=== PATIENT | female | born 1965 | race Hispanic/Latino ===

== ENCOUNTER 2020-06-06 11:43 | Inpatient (IN) | payer OTHER ==
[~2020-06-06 11:43] MED LIST: Iopamidol-370 76% 500 ML 1 ML ONE
[2020-06-06 12:33] LABS: Hemoglobin 13.2 g/dL (12.0-16.0); Mean Corpuscular Volume 94.2 fL (78.0-98.0); Mean Platelet Volume 7.4 fL (7.4-10.4); Platelet Count 333 thou/uL (130-400); RBC Distribution Width 11.2 % (11.5-14.5); Red Blood Cell (RBC) Count 4.11 mill/uL (4.20-5.40); White Blood Cell (WBC) Count 12.4 thou/uL (4.8-10.8)
[2020-06-06 12:51] LABS: ALT (SGPT) 14 U/L (8-55); AST (SGOT) 10 U/L (5-34); Albumin 3.7 g/dL (3.5-5.0); Alkaline Phosphatase 77 U/L (40-110); Anion Gap 15 mmol/L (10-20); BUN (Urea Nitrogen) 10 mg/dL (9.8-20.1); Band 11 % (5-11); Bilirubin, Total 0.5 mg/dL (0.2-1.2); Calc. Creatinine Clearance 0 mL/min (70-130); Calcium 9.5 mg/dL (7.8-10.44); Carbon Dioxide 30 mmol/L (22-29); Chloride 99 mmol/L (98-107); Eosinophils 1 % (0-10); Glucose 116 mg/dL (70-105); Lymphocytes 5 % (21-51); MDiff Complete? YES; Monocytes 3 % (0-10); Neutrophil 77 % (42-75); Potassium 3.3 mmol/L (3.5-5.1); Protein, Total 7.7 g/dL (6.0-8.3); RBC Morphology Normal; Reactive Lymphocytes 3 % (0-10); Sodium 141 mmol/L (136-145)
[2020-06-06] MEDS ORDERED: Morphine 4 MG/ML VIAL ONE (15:09)
[2020-06-06] MEDS ORDERED: Ondansetron PF 4 MG/2 ML Vial ONE (15:10)
--- NOTE | 2020-06-06 15:29 | CT ---
CT ABDOMEN AND PELVIS WITH IV CONTRAST 06/06/2020 CLINICAL INFORMATION: Diffuse abdominal pain. History of Crohn's disease. COMPARISON: 06/02/2020 Technique: Multiple contiguous axial CT images are obtained through the abdomen and pelvis with IV contrast. Cor onal reformatted images are provided. FINDINGS: Lower Chest: Lung bases are clear. Vessels: Abdominal aorta is normal in caliber without evidence of an aortic dissection. Incidental no te is made of a circumaortic left renal vein. Abdomen: Portal vein:Patent Gallbladder: Within normal limits for CT imaging. Liver: within normal limits. Spleen: within normal limits. Pancreas: within normal limits. Adrenals: within normal limits. Kidneys: within normal limits. Bowel: There is bowel wall thickening involving the sigmoid colon which extends to the rectosigmoid j unction. Degree of bowel wall thickening has increased compared to the prior exam. Adjacent pericolonic inflammatory changes are seen most compatible with colitis. There are several tiny puncta te foci of gas present suggesting microperforation. There is now a curvilinear air fluid collection in the right hemipelvis compatible with contained perforation or abscess collection which grossly angelique sures 5.7 cm craniocaudal x7.4 cm AP x4.6 cm transverse. Appendix: The appendix is mildly prominent measuring 9 mm in diameter within the level of the mid jasmyn endix. The appendix previously measured approximately 8 mm in diameter on prior exam. There is adjacent inflammatory stranding present, but the inflammatory stranding is likely attributable to col itis. Findings are not thought to be secondary to appendicitis. Peritoneum: No inflammatory stranding in the lower pelvis as described above. Mesentery and Retroperitoneum: No enlarged mesenteric or retroperitoneal lymph nodes. Abdominal Wall: within normal limits. Pelvis: Reproductive Organs: Evidence of hysterectomy. Bladder: within normal limits. Bones: No suspicious lytic or sclerotic osseous lesions. IMPRESSION: 1. Findings most compatible with progression in degree of colitis involving the sigmoid colon now wit h evidence of perforation with foci of free intraperitoneal gas and large fluid and air collection adjacent to the sigmoid colon which may represent either a contained perforation or abscess collectio n. 2. Above findings discussed with Jes Narayan, nurse practitioner in the emergency department on at 1524 hours.
[2020-06-06 15:59] LABS: Bilirubin Negative (Negative); Blood, Urine Negative (Negative); Clarity Clear (Clear); Glucose, Urine (Dipstick) Normal (Negative); Ketone, Urine Negative (Negative); Leukocyte Negative Leu/uL (Negative); Nitrite Negative (Negative); Protein, Urine (Dipstick) Negative (Neg-Trace); Specific Gravity, Urine 1.038 (1.002-1.036); Urobilinogen Normal mg/dL (Less than 2)
[2020-06-06] MEDS ORDERED: Piperacillin/Tazobactam 4.5 GM VIAL ONE (16:20)
[2020-06-06] MEDS ORDERED: Morphine 4 MG/ML VIAL SLOW IVP PRN (17:28)
[2020-06-06] MEDS ORDERED: hydrALAZINE 20 MG/ML VIAL SLOW IVP PRN (17:28)
[2020-06-06] MEDS ORDERED: Ondansetron PF 4 MG/2 ML Vial IVP PRN ×2 (17:28→18:49)
[2020-06-06] MEDS ORDERED: Promethazine HCl 25 MG/ML VIAL IM PRN ×2 (17:28→18:49)
[2020-06-06] MEDS ORDERED: Fentanyl 100 MCG/2 ML VIAL ONE ×2 (17:30→22:01)
[2020-06-06] MEDS ORDERED: Ketorolac Tromethamine 30 MG/ML VIAL ONE (17:30)
[2020-06-06] MEDS ORDERED: Ondansetron ODT 8 MG TAB SL PRN (17:32)
[2020-06-06] MEDS ORDERED: Sodium Chloride 0.9% 1,000 ML IV SCH (17:45)
[2020-06-06] MEDS ORDERED: Ketorolac Tromethamine 30 MG/ML VIAL IVP SCH (17:45)
--- NOTE | 2020-06-06 17:59 | HP ---
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 She is . She has two children. She states that she has been known to have Crohn disease quiescent for the last 10 years, has not had a colonoscopy more than 10 years. She is also noted to have a past history of lupus, also quiescent for the last 10 years, not on any treatment. 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 She began having mucousy stools, small in caliber, and lower abdominal pain. She began treatment with Vancocin orally until C difficile studies were negative. Her pain worsened and she presented to the [facility] last week and was evaluated, had a CAT scan and was diagnosed with colitis. She was started on Flagyl. No other treatment. Diet was not altered, although she was not hungry and did not eat much. The pain became unbearable for the last four days and she presented to this facility where she is evaluated. She is evaluated with a CAT scan of the abdomen and pelvis revealing sigmoid colitis, adjacent contained free air and a pelvic abscess 5 x 7 cm. I have discussed with Nikolay Dan, and he agrees this is amenable to drainage. The patient is having quite a bit of pain, mostly pelvis and radiation to her rectum. Her white count is 12, hemoglobin 13, sodium 141, potassium 3.3, glucose 116. Her vital signs have remained stable. ALLERGIES: NONE. TOBACCO: None. ALCOHOL: Rarely. MEDICATIONS: None routinely. PAST SURGICAL HISTORY: Laparoscopic hysterectomy without oophorectomy, C-sections, hemorrhoidectomy. She had a colonoscopy, last she estimated was at 44 years of age. At 39 years of age, she was diagnosed with Crohn's. She consider herself allergic to wheat, and since avoiding wheat, she has not had any GI problems. The patient has the past history of Crohn's, lupus, and Raynaud as noted above. REVIEW OF SYSTEMS: Ten-point noncontributory. FAMILY HISTORY: Noncontributory. PHYSICAL EXAMINATION: VITAL SIGNS: 128/74, respiratory rate 18, heart rate 78. HEAD, EARS, EYES, NOSE, AND THROAT: Unremarkable. LUNGS: Clear to auscultation. CARDIAC: Regular rate and rhythm without murmur or gallop. ABDOMEN: Soft, slightly obese, protuberant. She has bowel sounds present. She has voluntary guarding in her upper abdomen. She has severe tenderness, peritoneal signs in the left lower quadrant suprapubic area. EXTREMITIES: Unremarkable. She has an IV left antecubital that is tenuous. Lab is trying to draw blood and cannot. ASSESSMENT/PLAN: 1. Severe colitis with contained perforation and pelvic abscess. I have talked to the patient about my concern regarding her abdominal pain. We will plan admission to the hospital, placement of central line, aggressive hydration as she is dehydrated, and treat her hypokalemia. I talked to Dr. Nikolay Dan and we will plan a CT-guided drainage of her pelvic abscess. We will consult GI to follow her along with me in reference to her Crohn disease and problems. Hopefully, we can avoid an operation which if necessary would consist of colectomy and colostomy, probably temporary. She understands these issues and consents to treatment nonsurgically at this point with CT-guided drainage. 2. Crohn disease. 3. Lupus. 4. Dehydration. 5. Hypokalemia. 6. Poor IV access, plan central line. Job ID: [id number]
--- NOTE | 2020-06-06 18:06 | RAD ---
Exam: Chest one view HISTORY:Preoperative exam. Left lower quadrant abdominal pain. Comparison: None FINDINGS: Cardiac silhouette:No cardiac silhouette Left-sided subclavian vascular catheter terminates over the right atrium. Aorta: Unremarkable Pulmonary vessels: Normal Costophrenic angles: Clear LUNGS: No masses or consolidation. Pneumothorax: None Osseous abnormalities: None IMPRESSION: No acute cardiopulmonary process.
[2020-06-06] MEDS ORDERED: Zolpidem Tartrate 5 MG TAB PO PRN (18:49)
[2020-06-06] MEDS ORDERED: Naloxone HCl 0.4 mg/ml Vial IV PRN (18:49)
[2020-06-06] MEDS ORDERED: diphenhydrAMINE 50 MG/ML VIAL IVP PRN (18:49)
[2020-06-06] MEDS ORDERED: diphenhydrAMINE 25 MG CAP PO PRN (18:49)
[2020-06-06] MEDS ORDERED: diphenhydrAMINE 50 MG/ML VIAL IM PRN (18:49)
[2020-06-06] MEDS ORDERED: Communication Order-Pharmacy FS SCH (19:00)
[2020-06-06] MEDS: Potassium Chloride 20 MEQ in Lactated Ringer's 1,000 ML IV SCH (19:03)
[2020-06-06] MEDS: HYDROmorphone 10 mg/100 ml CADD IVPB PRN (22:55)
[2020-06-06] MEDS ORDERED: Ondansetron ODT 4 MG TAB ONE (23:55)
[2020-06-07] MEDS ORDERED: Piperacillin/Tazobactam 4.5 GM VIAL ONE (00:50)
[2020-06-07] MEDS ORDERED: Enoxaparin Sodium 40 MG/0.4 ML SYRINGE ONE (00:50)
[2020-06-07] MEDS ORDERED: Famotidine/PF 20 mg/2ml Vial ONE (00:50)
[2020-06-07] MEDS: Famotidine/PF 20 mg/2ml Vial SLOW IVP SCH ×3 (00:57→21:33)
[2020-06-07] MEDS: Enoxaparin Sodium 40 MG/0.4 ML SYRINGE SC SCH ×2 (00:58→21:34)
[2020-06-07] MEDS: Piperacillin/Tazobactam 4.5 GM in Sodium Chloride 0.9% 100 ML IVPB SCH ×3 (01:00→16:16)
[2020-06-07 06:55] LABS: Hemoglobin 13.4 g/dL (12.0-16.0); Mean Corpuscular HGB CONC 33.6 g/dL (32.0-36.0); Mean Corpuscular Hemoglobin 32.1 pg (27.0-31.0); Mean Corpuscular Volume 95.5 fL (78.0-98.0); Mean Platelet Volume 7.5 fL (7.4-10.4); Platelet Count 307 thou/uL (130-400); RBC Distribution Width 11.3 % (11.5-14.5); Red Blood Cell (RBC) Count 4.17 mill/uL (4.20-5.40); White Blood Cell (WBC) Count 2.7 thou/uL (4.8-10.8)
[2020-06-07 07:03] LABS: INR-International Normal Ratio 1.2; PTT 30.5 sec (22.9-36.1); Prothrombin Time 15.4 sec (12.0-14.7)
[2020-06-07 07:21] LABS: ALT (SGPT) 8 U/L (8-55); AST (SGOT) 8 U/L (5-34); Albumin 3.2 g/dL (3.5-5.0); Alkaline Phosphatase 55 U/L (40-110); Anion Gap 17 mmol/L (10-20); BUN (Urea Nitrogen) 12 mg/dL (9.8-20.1); Bilirubin, Total 0.7 mg/dL (0.2-1.2); Calc. Creatinine Clearance 0 mL/min (70-130); Calcium 8.5 mg/dL (7.8-10.44); Carbon Dioxide 24 mmol/L (22-29); Chloride 108 mmol/L (98-107); Globulin 3.1 g/dL (2.4-3.5); Glucose 116 mg/dL (70-105); Magnesium 1.8 mg/dL (1.6-2.6); Phosphorus 4.3 mg/dL (2.3-4.7); Potassium 3.6 mmol/L (3.5-5.1); Protein, Total 6.3 g/dL (6.0-8.3); Sodium 145 mmol/L (136-145)
[2020-06-07] MEDS: Potassium Chloride 20 MEQ in Lactated Ringer's 1,000 ML IV SCH ×4 (07:24→18:15)
[2020-06-07 07:53] LABS: Band 44 % (5-11); Lymphocytes 20 % (21-51); MDiff Complete? YES; Metamyelocyte 2 % (0-0); Monocytes 5 % (0-10); Myelocyte 1 % (0-0); Neutrophil 18 % (42-75); Platelet Morphology Comment Appears Adequate; Polychromasia SLIGHT = 2-3 cells (100X) (0-2/hpf); RBC Morphology Normal; Reactive Lymphocytes 10 % (0-10); Reflex for Review?? YES; Vacuoles MARKED
[2020-06-07] MEDS ORDERED: Sodium Bicarbonate 2.5 MEQ/5 ML VIAL ONE (07:58)
[2020-06-07] MEDS ORDERED: Midazolam HCl 2 mg/2 ml Vial ONE (07:59)
[2020-06-07] MEDS ORDERED: Fentanyl 100 MCG/2 ML VIAL ONE ×2 (07:59→12:49)
--- NOTE | 2020-06-07 08:54 | CT ---
CT Abdomen Pelvis WO Con 06/07/2020 12:00 AM HISTORY: Patient scheduled for fluid and air collection drainage. However initial kitchenwhere maker imaging prior to drain age demonstrates decompression of the collection with increase in free fluid in the abdomen. As a result, CT abdomen and pelvis without was performed COMPARISON: 06/06/2020 Technique: Multiple contiguous axial CT images are obtained through the abdomen and pelvis without IV contrast. Coronal reformats are provided. FINDINGS: This examination is limited for the evaluation of solid organs and vascular structures due to the lac k of intravenous contrast. Lower Chest: Patchy parenchymal density seen at the right lung base and to lesser extent left lung ba se likely related to bibasilar atelectasis. Partial visualization of a central venous catheter with tip near the right atrium. Liver: Grossly normal non-enhanced CT appearance. Gallbladder: Mildly distended with increased density seen in the gallbladder related to vicarious exc retion of contrast into the gallbladder. Pancreas: Grossly normal nonenhanced CT appearance. Spleen: Grossly normal nonenhanced CT appearance. Adrenals: Grossly normal nonenhanced CT appearance. Kidneys and ureters: No renal or ureteral calculi are seen bilaterally. Urinary bladder: Distended with contrast and has a normal CT appearance. Reproductive Organs: Evidence of hysterectomy. Lymph Nodes: No enlarged lymph nodes. Bowel: Persistent bowel wall thickening involving the sigmoid colon related to colitis is again prese nt. Contrast is present within the descending and sigmoid colon extending to the rectum. Loops of small bowel are normal in caliber. Appendix: Not well assessed due to free fluid in the abdomen. There is gas seen in the expected locat ion of the appendix. Peritoneum: Previously seen fluid and gas collection in the right hemipelvis has significantly decrea sed in size with hyperdense material present within the region of the previously seen collection. There is now large amount of free intraperitoneal gas and increase in fluid throughout the abdomen an d pelvis with greatest adjacent to the anterior margin of the liver. Findings are compatible with perforation of a viscus again likely arising from sigmoid colon and in the region of the presumed con tained perforation right hemipelvis. Vessels: Abdominal aorta is normal in caliber.. Abdominal Wall: within normal limits. Bones: No lytic or sclerotic osseous lesions. IMPRESSION: 1. Increase in free intraperitoneal gas and free fluid compatible with perforation of a viscus which again likely arises from the plate sigmoid colon and in the region of presumed previously noted contained perforation right hemipelvis. The fluid and gas collection in the right hemipelvis has sign ificantly decreased in size with small amount of increased density material now present within this collection. 2. Thickening involving the sigmoid colon compatible with colitis. 3. Bibasilar atelectasis with trace pericardial effusion. 4. Above findings were discussed with Dr. Garcia on 06/07/2020 at 0832 hours.
[2020-06-07 09:02] LABS: SARS-CoV-2 NAA Rapid Test Not Detected (NotDetected)
--- NOTE | 2020-06-07 09:14 | PRG ---
DATE OF SERVICE: 06/07/2020 SUBJECTIVE: Ms. Paiz this morning is feeling worse. Her white count has dropped to 2.7. She has 44% bands. Hemoglobin is 13.4. Rapid COVID screen is pending. 145, 3.6, 108, sodium, potassium, chloride, BUN 12, creatinine 1.04. The patient feels worse. OBJECTIVE: LUNGS: Clear to auscultation. CARDIAC: Regular rate and rhythm without murmur or gallop. ABDOMEN: Diffusely tender. Peritoneal signs. No bowel sounds. EXTREMITIES: Unremarkable. IMAGING STUDIES: Repeat CAT scan attempted CT-guided drainage of fluid collection revealed the fluid collection is no longer present and more dispersed in the abdominal cavity. There was free air more abundant throughout the abdominal cavity. ASSESSMENT/PLAN: Peritonitis, perforated colon. PLAN: Exploratory laparotomy, colon resection, colostomy indicated. She understands risks and benefits, consents. Job ID: [id number]
[2020-06-07] MEDS ORDERED: Fentanyl 250 MCG/5 ML VIAL ONE (09:24)
[2020-06-07] MEDS ORDERED: Lidocaine 1% w/Epinephrine 1:100K 20 ML VIAL ONE (10:00)
[2020-06-07] MEDS ORDERED: Bupivacaine PF 0.5% 30 ML VIAL ONE (10:00)
[2020-06-07] MEDS ORDERED: Lidocaine 1% PF 5 ML VIAL ONE (10:17)
[2020-06-07] MEDS ORDERED: Succinylcholine 200 MG/10 ml SYRINGE FS ONE (10:17)
[2020-06-07] MEDS ORDERED: Ondansetron PF 4 MG/2 ML Vial ONE (10:17)
[2020-06-07] MEDS ORDERED: Glycopyrrolate 0.2 MG/ML 5 ML SYRINGE ONE (10:17)
[2020-06-07] MEDS ORDERED: Vecuronium 10 MG VIAL ONE (10:17)
[2020-06-07] MEDS ORDERED: Phenylephrine 40 MG in Sodium Chloride 0.9% 250 ML 250 ML IVPB SCH (10:30)
[2020-06-07] MEDS ORDERED: Albumin 5% 500 ML ONE (10:52)
[2020-06-07] MEDS ORDERED: Promethazine HCl 25 MG/ML VIAL ONE (13:21)
--- NOTE | 2020-06-07 13:49 | OP ---
DATE OF PROCEDURE: 06/07/2020 PREOPERATIVE DIAGNOSES: 1. Sigmoid diverticulitis. 2. Feculent peritonitis. 3. Acute abdomen. POSTOPERATIVE DIAGNOSES: 1. Sigmoid diverticulitis. 2. Feculent peritonitis. 3. Acute abdomen. PROCEDURES PERFORMED: 1. Exploratory laparotomy. 2. Left colon and splenic flexure mobilization. 3. Left colon resection. 4. Colostomy. 5. Lenka's pouch, roland with a 2-0 Prolene, 3 Seprafilm placed between the omentum and the abdominal wall wound, partially closed with a wound VAC applied. ANESTHESIA: General. DESCRIPTION OF PROCEDURE: The patient was taken to the operating room where under general anesthesia, Montenegro catheter placed. Abdomen prepared with ChloraPrep and draped in routine fashion. Incision made from the lower abdomen to above the umbilicus, carried down to skin, subcutaneous tissue, midline fascia, and abdominal cavity sharply. There was feculent material fluid in the abdominal cavity, evacuated with suction. The abdominal wall was fat. She is obese. Abdominal cavity irrigated. Sigmoid colon mobilized. Left colon mobilized. Splenic flexure mobilized, taking down the gastrocolic ligament adjacent to the transverse colon and splenic flexure mobilized. This was difficult as the splenic flexure was very high. Attention was then turned to the pelvis where the left ureter was identified, kept free of harm. The left tube and ovary were adherent to the process and excised using the LigaSure, submitted with the specimen. The mesentery divided between clamps and divided the CINDY, keeping the left ureter free of harm. 2-0 silk ties were used. LigaSure used and the mesentery divided down into the sacral hollow. The presacral spots dissected free. The sigmoid colon was perforated with severe inflammatory reaction in the junction of the distal 3rd and mid 3rd colon. Just above the peritoneal reflection, colon divided with a Contour stapler. Stump marked with a 2-0 Prolene suture. Mesentery divided with LigaSure between clamps and 2-0 silk ties. Good hemostasis noted. Colon mobilized proximally well above the perforated area, enough colon mobilized to accommodate colostomy reversal in the future. Colon proximally divided with ANDREW 75 stapler. Specimen submitted to Pathology. Left tube and ovary adherent to the process divided, excised using the LigaSure. At this point, the abdominal cavity thoroughly irrigated with saline solution, irrigant evacuated. All quadrants and subhepatic spaces and pelvis interloops were aggressively irrigated, agitated, and washed using more than 6 L of saline. A circular defect of skin was created in the left lower quadrant and a cruciate incision made in the anterior rectus fascia. Rectus muscle split mediolaterally. Posterior fascia and peritoneum opened, dilated more than two fingerbreadths due to her obese status. Colon brought through this defect and then wound irrigated, irrigant evacuated. Good hemostasis noted. Sponge and needle counts were correct. Seprafilm x3 placed between the omentum and the viscera and around the colostomy site. The midline fascia closed with continuous suture of #1 PDS. Skin and subcutaneous tissues irrigated. Skin loosely approximated with justice about the umbilicus corners and Wound Care Team placed a wound VAC after colostomy was matured with 4-quadrant sutures of 3-0 Vicryl Matheus sutures after dividing the colon and simple sutures 3-0 Vicryl. Colostomy appliance secured. The patient tolerated the procedure well and transferred ICU, hopefully extubated. Job ID: [id number]
[2020-06-07] MEDS: Ketorolac Tromethamine 30 MG/ML VIAL IVP PRN ×2 (14:58→21:36)
[2020-06-07 15:08] VITALS: BMI 29.9
[2020-06-07 15:36] LABS: Hemoglobin 12.3 g/dL (12.0-16.0); Mean Corpuscular HGB CONC 32.9 g/dL (32.0-36.0); Mean Corpuscular Hemoglobin 32.3 pg (27.0-31.0); Mean Corpuscular Volume 98.3 fL (78.0-98.0); Mean Platelet Volume 7.5 fL (7.4-10.4); Platelet Count 314 thou/uL (130-400); RBC Distribution Width 11.5 % (11.5-14.5); White Blood Cell (WBC) Count 6.1 thou/uL (4.8-10.8)
[2020-06-07 16:05] LABS: Band 42 % (5-11); Lymphocytes 22 % (21-51); MDiff Complete? YES; Metamyelocyte 12 % (0-0); Monocytes 1 % (0-10); Myelocyte 2 % (0-0); Neutrophil 21 % (42-75); Platelet Morphology Comment Appears Adequate; RBC Morphology Normal; Vacuoles SLIGHT
--- NOTE | 2020-06-07 16:06 | CON ---
DATE OF CONSULTATION: HISTORY OF PRESENT ILLNESS: Nieves Paiz is a 54-year-old female from [place], who was seen by Dr. Garcia, general surgeon, for acute abdomen. She is status post lap with a colostomy in place. History is well outlined in the chart. She is somewhat lethargic, but says except for abdominal pain, she is having no difficulty breathing. She is a nonsmoker and nondrinker. No prior history of pneumonia, TB, or asthma. PAST MEDICAL HISTORY: Pertinent for Crohn disease, which she has had for a long duration, at least 10 years. She started having some GI problems, felt to be colitis. CT done. She received a course of Flagyl and apparently p.o. vancomycin when pain became worse. She was found to have a perforated viscus. She is now status post surgery. No diabetes or hypertension. History of apparently lupus, though I do not see any medicine she is taking. PAST SURGICAL HISTORY: Hysterectomy, oophorectomy, hemorrhoids, colonoscopy. PHYSICAL EXAMINATION: GENERAL: In the ICU, extubated. VITAL SIGNS: Temperature 97, pulse 90, blood pressure 88/60, respirations 18, saturations 98% on room air. CHEST: No wheezing. No crackles. CARDIAC: Normal S1 and S2. No gallops. ABDOMEN: No masses. LABORATORY DATA: White count 2000, H and H of 13 and 39, platelet count is normal. She has left shift, 44 segs, and 18 bands. Liver function normal and lytes normal. Renal function normal. IMPRESSION: 1. Peritonitis status with perforated colon, status post exploratory laparotomy, colon resection, colostomy. 2. History of lupus. 3. History of Crohn disease. PLAN: Pulmonary sprague, she appears to be stable in the ICU. We will continue to watch her while in the ICU. This is a 70-minute consultation note, 50% direct patient care. Job ID: [id number]
[2020-06-07 16:09] LABS: Anion Gap 15 mmol/L (10-20); BUN (Urea Nitrogen) 11 mg/dL (9.8-20.1); Calc. Creatinine Clearance 111 mL/min (70-130); Calcium 7.2 mg/dL (7.8-10.44); Carbon Dioxide 23 mmol/L (22-29); Chloride 111 mmol/L (98-107); Glucose 126 mg/dL (70-105); Potassium 3.6 mmol/L (3.5-5.1); Sodium 145 mmol/L (136-145)
[2020-06-07] MEDS ORDERED: Potassium Chloride 20 MEQ in Lactated Ringer's 1,000 ML IV SCH (17:26)
[2020-06-07] MEDS ORDERED: Sodium Chloride 0.9% 1,000 ML IV SCH (17:30)
[2020-06-07] MEDS: Albumin 25% 25 GM/100 ML BOT IVPB SCH (18:18)
--- NOTE | 2020-06-08 00:02 | CON ---
DATE OF CONSULTATION: 06/07/2020 REASON FOR CONSULT: Possible Crohn's disease. HISTORY OF PRESENT ILLNESS: Ms. Paiz is a pleasant 54-year-old female, who reports Crohn's diagnosis going back about 20 years. She states it was initially diagnosed at a walk-in medical center with inflammation in her lower colon. She has never been on any therapy. Her last colonoscopy was about 5 years ago at [facility]. She stated there, she had chronic inflammation in the lower colon. Managed basically by staying away from fiber products. She also reports a history of lupus, which has been quiescent for about 10 years. More recently, she has been working at [employer], she states since about 2010 and within the past couple weeks, she began to have mucousy stools, small caliber, lower abdominal pain and she attributed to C. difficile, so she started vancomycin orally, but had C. difficile that was negative, so she stopped that. With worsening pain, she went to [facility] last week and had a CAT scan that showed "colitis." She was placed on Flagyl. She has some loss of appetite, but in the past 4 days had unbearable pain and presented to this facility with a CAT scan last night that showed sigmoid colitis and free pelvic abscess 5.7 cm in diameter. Today, she was going to have percutaneous drainage, but there appeared to be diffuse fluid in the abdomen at that time, there was seen to be gross perforation. [facility] per[facility]. She has had a washout and a colostomy. Presently, she is recovering in the ICU. She states her abdomen is thaw shed heater tender. She denies any recent weight loss. She denies any other small bowel involvement or Crohn's as far she knows. She denies any therapy in the past. ALLERGIES: NONE. SOCIAL HISTORY: Tobacco none. Alcohol none. MEDICATIONS: None on a regular basis. PAST SURGICAL HISTORY: Laparoscopic cholecystectomy, hysterectomy with oophorectomy and C-sections, previous hemorrhoidectomy, last colonoscopy probably at age 44. She was diagnosed with Crohn's at age 39. With avoiding wheat, has had no real problems. She has a prior history of lupus, which has been quiescent and history of Raynaud's. REVIEW OF SYSTEMS: She denies any eye manifestations, skin manifestations, inflammatory bowel disease, or any liver problems in the past. She denies any dysphagia, odynophagia, melena. She had some blood-tinged stool recently. FAMILY HISTORY: She denies history of colorectal cancer or Crohn's, but she states her family does not talk about medical issues. PRESENT MEDICATIONS: Here, albumin 25 g IV q.6, Benadryl p.r.n., Lovenox subcu, Pepcid, hydralazine p.r.n., Dilaudid p.r.n., Toradol p.r.n., Zofran p.r.n., Zosyn 4.5 g q.6, potassium replacement, normal saline. She received a bolus and LR at 200. PHYSICAL EXAMINATION: GENERAL: She is resting in the ICU. VITAL SIGNS: Pulse 102, blood pressure 92/63, respirations 12, sat 95%. LUNGS: Clear. HEART: Regular without clicks or murmurs. ABDOMEN: Slightly protuberant. She has ostomy in left lower quadrant. She is tender diffusely. Bowel sounds are quiescent. NEUROLOGIC: She is alert and oriented to person, place, and time. SKIN: No rash or lesions. LABORATORY DATA: White count was 12.4 yesterday, 2.7 today, 6.1 at 1500; hemoglobin 13.2, now 12 at 1500; platelet count 314; 42% bands, 11% yesterday. INR 1.2. Sodium 145, potassium 3.6, BUN and creatinine are 11 and 0.7, glucose 126, calcium 7.2. Liver function tests were normal on admission. Albumin 3.7, protein 7.7, globulin is 4. Lipase was 7. Urine on admission was clear. COVID was negative. CT scans reviewed. Initial CAT scan showed sigmoid thickening from the sigmoid colon to the rectosigmoid junction. There were signs of microperforation at that time and some free fluid in the pelvis, this is on the 14th, 5.7 x 7.4 cm. Appendix was normal. No lymph nodes were noted. CT from 06/02 was reviewed, sigmoid colitis, mild hydroureter on the left. Blood cultures pending. ASSESSMENT: This is a lady with remote history of Crohn's, no therapy ever, who presented now with an abscess and perforation of sigmoid colon. Differential diagnosis includes diverticular abscess perforation, Crohn's disease perforation. She has been managed operatively. She is on broad-spectrum antibiotics. RECOMMENDATIONS: At this point in time, we are going to get a QuantiFERON and hepatitis B markers. If this is Crohn's, she is going to need biologic therapy at a later date once she recovers from surgery. She will need a colonoscopy when she recovers from surgery. At this time, we will follow with you. Job ID: [id number]
[2020-06-08] MEDS: Albumin 25% 25 GM/100 ML BOT IVPB SCH ×4 (00:07→18:30)
[2020-06-08] MEDS: Piperacillin/Tazobactam 4.5 GM in Sodium Chloride 0.9% 100 ML IVPB SCH ×3 (00:08→16:25)
[2020-06-08] MEDS: Potassium Chloride 20 MEQ in Lactated Ringer's 1,000 ML IV SCH ×4 (00:12→18:31)
[2020-06-08] MEDS: HYDROmorphone 10 mg/100 ml CADD IVPB PRN (05:56)
[2020-06-08 06:00] LABS: Anion Gap 13 mmol/L (10-20); BUN (Urea Nitrogen) 10 mg/dL (9.8-20.1); Calc. Creatinine Clearance 102 mL/min (70-130); Calcium 7.4 mg/dL (7.8-10.44); Carbon Dioxide 24 mmol/L (22-29); Chloride 114 mmol/L (98-107); Glucose 88 mg/dL (70-105); Potassium 4.3 mmol/L (3.5-5.1); Sodium 147 mmol/L (136-145)
[2020-06-08 06:06] LABS: Band 40 % (5-11); Eosinophils 2 % (0-10); Hemoglobin 10.5 g/dL (12.0-16.0); Hypochromia SLIGHT = 6-15 cells (100X) (0-5/hpf); Lymphocytes 28 % (21-51); MDiff Complete? YES; Metamyelocyte 20 % (0-0); Monocytes 6 % (0-10); Neutrophil 3 % (42-75); Platelet Count 254 thou/uL (130-400); Platelet Morphology Comment Appears Adequate; RBC Distribution Width 11.6 % (11.5-14.5); Reactive Lymphocytes 1 % (0-10); Red Blood Cell (RBC) Count 3.28 mill/uL (4.20-5.40); White Blood Cell (WBC) Count 12.9 thou/uL (4.8-10.8)
[2020-06-08 06:15] LABS: HBCM Index 0.07 S/CO (0-0.79); HBSAB Concentration Less than 8.00 mIU/mL; HBSAg Index 0.18 S/CO (0-0.99); Hep B Core Total Ab Non-Reactive (NonReactive); Hep B Core Total Index 0.11 S/CO (0-0.79); Hep B Surf AB Non-Reactive (NonReactive); Hep B Surf Ag Non-Reactive S/CO (NonReactive); Hepatitis B Core IgM Abs Non-Reactive (NonReactive)
--- NOTE | 2020-06-08 09:15 | PRG ---
DATE OF SERVICE: 06/08/2020 SUBJECTIVE: Nieves Paiz remains in the ICU, in no respiratory distress. She has same abdominal pain. OBJECTIVE: VITAL SIGNS: Pulse 96, blood pressure 120/80, sats __94% on room air, respiratory rate 20. CHEST: No wheezing. No crackles. CARDIAC: Normal S1, S2. No gallops. ABDOMEN soft no m,asses LABORATORY DATA: Platelet count is normal, white count 12,000, H and H are stable. Lytes are normal. ASSESSMENT AND PLAN: Status post lap, perforated viscus, Crohn disease. We will continue to observe in the ICU. PT, supportive care. Job ID: [id number] MTDD
[2020-06-08] MEDS: Famotidine/PF 20 mg/2ml Vial SLOW IVP SCH ×2 (09:26→21:45)
--- NOTE | 2020-06-08 10:11 | OP ---
DATE OF PROCEDURE: 06/06/2020 PREOPERATIVE DIAGNOSES: Crohn disease, colitis, pneumoperitoneum, peritoneal abscess, poor IV access, and dehydration. POSTOPERATIVE DIAGNOSES: Crohn disease, colitis, pneumoperitoneum, peritoneal abscess, poor IV access, and dehydration. PROCEDURE PERFORMED: Left subclavian vein triple-lumen catheter. ANESTHESIA: 1% Xylocaine. DESCRIPTION OF PROCEDURE: With the patient at bedside, left paraclavicular area was prepared with ChloraPrep and draped in routine fashion. Local anesthetic was infiltrated in the skin and subcutaneous tissue. Trocar catheter cannulated the subclavian vein. J-wire threaded. Seldinger technique used to place a triple-lumen catheter, secured with 3-0 nylon suture. J-wire removed. Each port filled with blood, flushed with saline solution. The patient tolerated the procedure well. Sterile dressing applied. Job ID: [id number]
--- NOTE | 2020-06-08 16:27 | PQF ---
CLINICAL DOCUMENTATION CLARIFICATION FORM: Dear Dr. LOWELL FISCHER Date / Time: 06-08-20 Please exercise your independent, professional judgment in responding to the clarification form. Clinical indicators are provided on the bottom of this form for your review. Please check appropriate box(es): [ ] Sepsis due to: [ ] Localized infection without sepsis [ ] Other diagnosis [ ] Unable to determine In addition, please specify: Present on Admission (POA): [ ] Yes [ ] No [ ] Unable to determine For continuity of documentation, please document condition throughout progress notes and discharge summary. Thank You. To be completed by CDI/Coding staff for physician review: CLINICAL INDICATORS - SIGNS / SYMPTOMS / LABS / RESULTS AND LOCATION IN MR: OP NOTE DR. FISCHRE 06-07-20: sigmoid diverticulitis, feculent peritonitis, acute abdomen WBC: 06-06-20: 12.4 06-07-20: 2.7 06-08-20: 12.9 BANDS: 06-07-20: 44% 06-07-20: 42% 06-08-20: 40% HR: 06-08-20: 105, 100, 102, 111 RISK FACTORS / RESULTS AND LOCATION IN MR: OP NOTE DR. FISCHER 06-07-20: sigmoid diverticulitis, feculent peritonitis, acute abdomen TREATMENTS / RESULTS AND LOCATION IN MR: MAR: 06-06-20: ZOSYN IV, POTASSIUM CHLORIDE IN LR IVF CDS Signature: Belen Parra Phone #: [phone] Date: 06-08-20 This is a permanent part of the Medical Record [facility]
--- NOTE | 2020-06-08 19:11 | PRG ---
DATE OF SERVICE: 06/08/2020 SUBJECTIVE: Ms. Paiz is in the ICU. She is seen early this morning and again this evening. Raudel-Synephrine is being weaned and is down to 3 to 4 mcg now. OBJECTIVE: GENERAL: The patient is awake and alert. Her pain is controlled with DIRECTOR OF LABORATORY OPERATIONS. VITAL SIGNS: Heart rate 99, blood pressure 125/67. LUNGS: Clear to auscultation. CARDIAC: Regular rhythm. No murmur or gallop. ABDOMEN: Soft. Colostomy is in her back. Colostomy is healthy, but slightly dusky. EXTREMITIES: Mild edema. LABORATORY DATA: This morning, her white count is 12, hemoglobin 10. BUN and creatinine are 10 and 0.85, sodium 147, potassium 4.3. ASSESSMENT AND PLAN: 1. Sepsis. Raudel-Synephrine is being weaned. She had feculent peritonitis, status post washout. Continue Raudel-Synephrine wean as able. It is almost weaned off. 2. Peritonitis, ileus. Continue IV fluids, NG tube, ice chips. 3. ICU care. Continue to monitor in ICU today. 4. Edema. Decrease IV fluids. Continue DIRECTOR OF LABORATORY OPERATIONS. 5. Pathology from the resected colon reveals acute diverticulitis with perforation. No dysplasia. No mention of Crohn disease. No evidence of Crohn disease noted. She will need a colonoscopy in the future. This colostomy can be reversed in the future. Job ID: [id number]
[2020-06-08] MEDS: Ketorolac Tromethamine 30 MG/ML VIAL IVP PRN (22:05)
[2020-06-08] MEDS: Enoxaparin Sodium 40 MG/0.4 ML SYRINGE SC SCH (22:06)
[2020-06-09] MEDS: Lactated Ringer's 1,000 ML IV SCH ×3 (00:56→12:56)
[2020-06-09] MEDS: Piperacillin/Tazobactam 4.5 GM in Sodium Chloride 0.9% 100 ML IVPB SCH ×4 (01:06→23:48)
[2020-06-09 05:29] LABS: Anion Gap 12 mmol/L (10-20); BUN (Urea Nitrogen) 12 mg/dL (9.8-20.1); Calc. Creatinine Clearance 109 mL/min (70-130); Calcium 8.5 mg/dL (7.8-10.44); Carbon Dioxide 27 mmol/L (22-29); Chloride 114 mmol/L (98-107); Glucose 71 mg/dL (70-105); Potassium 3.8 mmol/L (3.5-5.1); Sodium 149 mmol/L (136-145)
[2020-06-09 05:40] LABS: Band 39 % (5-11); Eosinophils 1 % (0-10); Hemoglobin 8.5 g/dL (12.0-16.0); Lymphocytes 2 % (21-51); MDiff Complete? YES; Mean Corpuscular HGB CONC 33.6 g/dL (32.0-36.0); Mean Corpuscular Hemoglobin 33.3 pg (27.0-31.0); Mean Corpuscular Volume 99.1 fL (78.0-98.0); Mean Platelet Volume 7.4 fL (7.4-10.4); Monocytes 3 % (0-10); Neutrophil 55 % (42-75); Platelet Count 185 thou/uL (130-400); Platelet Morphology Comment Appears Adequate; RBC Distribution Width 11.6 % (11.5-14.5); Red Blood Cell (RBC) Count 2.56 mill/uL (4.20-5.40); White Blood Cell (WBC) Count 11.4 thou/uL (4.8-10.8)
[2020-06-09] MEDS: Famotidine/PF 20 mg/2ml Vial SLOW IVP SCH ×2 (08:53→20:12)
--- NOTE | 2020-06-09 09:08 | PRG ---
DATE OF SERVICE: 06/09/2020 SUBJECTIVE: Nieves Paiz remains in the ICU status post laparoscopic colostomy. She is doing well except for some pain. No shortness of breath. OBJECTIVE: VITAL SIGNS: Saturations 100% on room air, blood pressure 100/50, . CHEST: No wheezing, no crackles. CARDIAC: Normal S1, S2. ABDOMEN: No masses. LABORATORY DATA: White count shows a big left shift, 55 segs, 39 bands, 11,000. ASSESSMENT: Abdominal sepsis, colitis, Crohn disease. She is going to be transferred out of the ICU. Continue antibiotics as per surgery. Pulmonary is going to follow while in the ICU. Job ID: [id number]
--- NOTE | 2020-06-09 09:30 | PRG ---
DATE OF SERVICE: 06/09/2020 SUBJECTIVE: Nieves Paiz is doing well. She is in ICU. Raudel-Synephrine has been weaned last night. Her blood pressure has been stable. OBJECTIVE: VITAL SIGNS: Blood pressure 110/55, heart rate 73, sats are good, and respiratory rate 22. GENERAL: Wound VAC changed today and her wound looks good. She tolerated this well. Her colostomy is healthy. She has had some output of stool and flatus. NG tube output has been minimal, 100 mL over the last 24 hours. She is taking copious ice chips and sips of water. Her NG tube output remains low. LUNGS: Clear to auscultation. CARDIAC: Regular rate and rhythm without murmur or gallop. ABDOMEN: Soft. Occasional bowel sounds. Colostomy healthy. EXTREMITIES: Mild edema. LABORATORY DATA: Sodium 149, potassium 3.8, BUN 12, creatinine 0.79. White count 11 and hemoglobin 8.5. Urine output overnight 2520. ASSESSMENT AND PLAN: Doing well after perforated diverticulitis. Pathology has returned and it is diverticulitis without Crohn disease. The patient has been up in a chair this morning. We will continue to spend most of the day in a chair. The patient's IV fluids diminished to 50 an hour, allow her to mobilize fluids. Urine output is copious. Renal function is normal. NG tube will be removed. She will be continue sips and chips. Awaiting better GI function. Overall, she is doing well. She is slightly confused, but I think this will improve with better sleep cycle. Sepsis improving, feculent peritonitis, ileus. Await GI function. Transfer to the floor. Job ID: [id number]
[2020-06-09] MEDS: Enoxaparin Sodium 40 MG/0.4 ML SYRINGE SC SCH (20:12)
[2020-06-09] MEDS: HYDROmorphone 10 mg/100 ml CADD IVPB PRN (20:16)
[2020-06-10] MEDS: Lactated Ringer's 1,000 ML IV SCH (06:31)
[2020-06-10 06:34] LABS: Hemoglobin 8.5 g/dL (12.0-16.0); Mean Corpuscular HGB CONC 33.4 g/dL (32.0-36.0); Mean Corpuscular Hemoglobin 31.9 pg (27.0-31.0); Mean Corpuscular Volume 95.4 fL (78.0-98.0); Mean Platelet Volume 7.4 fL (7.4-10.4); Platelet Count 219 thou/uL (130-400); RBC Distribution Width 11.6 % (11.5-14.5); Red Blood Cell (RBC) Count 2.67 mill/uL (4.20-5.40); White Blood Cell (WBC) Count 16.2 thou/uL (4.8-10.8)
[2020-06-10 06:53] LABS: ALT (SGPT) 10 U/L (8-55); AST (SGOT) 14 U/L (5-34); Albumin 3.1 g/dL (3.5-5.0); Alkaline Phosphatase 62 U/L (40-110); Anion Gap 16 mmol/L (10-20); BUN (Urea Nitrogen) 19 mg/dL (9.8-20.1); Bilirubin, Total 0.9 mg/dL (0.2-1.2); Calc. Creatinine Clearance 95 mL/min (70-130); Calcium 8.6 mg/dL (7.8-10.44); Carbon Dioxide 26 mmol/L (22-29); Chloride 111 mmol/L (98-107); Globulin 2.6 g/dL (2.4-3.5); Glucose 93 mg/dL (70-105); Potassium 3.2 mmol/L (3.5-5.1); Protein, Total 5.7 g/dL (6.0-8.3); Sodium 150 mmol/L (136-145)
[2020-06-10] MEDS: Piperacillin/Tazobactam 4.5 GM in Sodium Chloride 0.9% 100 ML IVPB SCH ×2 (08:29→16:31)
[2020-06-10] MEDS: Famotidine/PF 20 mg/2ml Vial SLOW IVP SCH (08:29)
[2020-06-10 09:17] LABS: Band 14 % (5-11); Lymphocytes 4 % (21-51); MDiff Complete? YES; Monocytes 4 % (0-10); Neutrophil 78 % (42-75); Platelet Morphology Comment Appears Adequate; Polychromasia SLIGHT = 2-3 cells (100X) (0-2/hpf)
[2020-06-10] MEDS ORDERED: Morphine 2 MG/ML VIAL SLOW IVP PRN ×2 (15:48→18:04)
[2020-06-10] MEDS ORDERED: traMADol HCl 50 MG TAB PO PRN ×2 (15:51)
[2020-06-10] MEDS ORDERED: Acetaminophen 500 MG TAB PO PRN (15:51)
[2020-06-10] MEDS: Ketorolac Tromethamine 30 MG/ML VIAL IVP PRN (16:31)
[2020-06-10] MEDS: Ketorolac Tromethamine 30 MG/ML VIAL IVP SCH (18:13)
[2020-06-10] MEDS: Morphine 4 MG/ML VIAL SLOW IVP PRN ×2 (18:31→20:39)
[2020-06-10] MEDS: Ondansetron ODT 4 MG TAB SL PRN (18:36)
[2020-06-10] MEDS: Enoxaparin Sodium 40 MG/0.4 ML SYRINGE SC SCH ×2 (20:39→20:49)
[2020-06-10] MEDS: Famotidine 20 MG TAB PO SCH ×2 (20:40→20:48)
[2020-06-11] MEDS: Ketorolac Tromethamine 30 MG/ML VIAL IVP SCH ×5 (00:09→17:51)
[2020-06-11] MEDS: Piperacillin/Tazobactam 4.5 GM in Sodium Chloride 0.9% 100 ML IVPB SCH ×3 (00:14→16:07)
[2020-06-11] MEDS: Morphine 4 MG/ML VIAL SLOW IVP PRN ×5 (02:39→20:20)
[2020-06-11 05:53] LABS: Hemoglobin 8.8 g/dL (12.0-16.0); Mean Corpuscular HGB CONC 33.7 g/dL (32.0-36.0); Mean Corpuscular Hemoglobin 32.2 pg (27.0-31.0); Mean Corpuscular Volume 95.6 fL (78.0-98.0); Mean Platelet Volume 8.1 fL (7.4-10.4); Platelet Count 213 thou/uL (130-400); RBC Distribution Width 11.9 % (11.5-14.5); Red Blood Cell (RBC) Count 2.72 mill/uL (4.20-5.40)
[2020-06-11 06:00] LABS: Anion Gap 13 mmol/L (10-20); BUN (Urea Nitrogen) 15 mg/dL (9.8-20.1); Calc. Creatinine Clearance 107 mL/min (70-130); Calcium 8.1 mg/dL (7.8-10.44); Carbon Dioxide 28 mmol/L (22-29); Chloride 111 mmol/L (98-107); Glucose 125 mg/dL (70-105); Magnesium 2.2 mg/dL (1.6-2.6); Potassium 3.3 mmol/L (3.5-5.1); Sodium 149 mmol/L (136-145)
[2020-06-11 06:06] LABS: Phosphorus 1.6 mg/dL (2.3-4.7)
[2020-06-11 06:24] LABS: Band 11 % (5-11); Lymphocytes 15 % (21-51); MDiff Complete? YES; Monocytes 2 % (0-10); Neutrophil 72 % (42-75); Target Cells SLIGHT = 2-5 cells (100X) (0-1/hpf)
[2020-06-11] MEDS ORDERED: Potassium Phosphate 30 MMOL in Sodium Chloride 0.9% 250 ML 250 ML IVPB SCH (07:00)
[2020-06-11] MEDS: Famotidine 20 MG TAB PO SCH ×2 (07:18→20:22)
--- NOTE | 2020-06-11 07:45 | PRG ---
DATE OF SERVICE: 06/10/2020 SUBJECTIVE: Nieves Paiz is 3 days postoperative laparotomy, splenic flexure mobilization, sigmoid colon resection for perforated diverticulitis with feculent peritonitis. Her NG tube was removed yesterday. She does not have any nausea or vomiting. She is taking very little ice chips. She is on a TAX RECORD CLERK pump. [place] catheter has been left in place and had 1685 output yesterday. She has copious urine output. IV fluids have been 50 mL per hour. OBJECTIVE: VITAL SIGNS: The patient is afebrile, 98.2 degrees, 83, 122/72. LUNGS: Clear to auscultation. CARDIAC: Regular rate and rhythm without murmur or gallop. ABDOMEN: Diminished bowel sounds. Soft, but tender. The patient keeps her hand on mine in check to prevent touching it. Her colostomy is healthy. She has stool and flatus in the bag. She denies nausea, vomiting, or reflux. LABORATORY DATA: Today, her hemoglobin is 8.5, stable from yesterday; white count 16, up from 11.4 yesterday; band count is 14,000 today, down from 39 yesterday, down from 40 day before. She continues on Zosyn q.6 hours. Her potassium is slightly low at 3.2, and IV fluid has been changed as her sodium is 150. IV fluids have been changed to D5 quarter normal saline with potassium 40 mEq at 50 per hour. She is being given potassium 40 mEq infusion in D5W. ASSESSMENT AND PLAN: 1. Hypernatremia, hypokalemia. Adjust IV fluids. Continue TKO. Allow fluid mobilization. Recheck electrolytes tomorrow after hypokalemia correction. 2. Poor tolerance for pain. She was up in a chair this morning. She has asked why she has to be up and why she is hurting so bad. She has asked if she really needs to walk around. I have told her that she really needs to be up in a chair most of the day and walk as frequently as possible. She tells me that she has been ignored and I ask her why that is and she says that when she cries out in pain, people did not respond as quick as she would like them to. I have reminded her that she has a TAX RECORD CLERK pump and that is the treatment for her pain. She states when she pushes the button, she has adequate relief. 3. Pathology has returned diverticulitis and not Crohn disease. I have informed her of this yesterday and today. 4. [place] catheter in place. Possibly will remove tomorrow, pending her mobility. 5. Wound VAC in place. Wound was inspected. It will be changed Saturday, we will look at it then. 6. Ileus. Although she has GI output, she is not taking very many ice chips. Probably would continue ice chips, sips of water today, and possibly could start her on liquids tomorrow if she is not having nausea or vomiting. Dr. Gutierrez is covering. Job ID: [id number]
--- NOTE | 2020-06-11 17:44 | PRG ---
DATE OF SERVICE: 06/11/2020 SUBJECTIVE: The patient was seen this morning during rounds. She was sitting up in a chair with no signs of acute distress. She reported that she did not sleep well overnight and she felt anxious and a little bit confused. She is just starting to put together the pieces of what has happened over the past couple of days while she has been in the hospital. I did spend a significant amount of time discussing with her the vent and her operative course. The patient's family was at bedside and also helped to fill in information. Her ostomy has small amount of output, brown liquid. Wound VAC is in place and working appropriately. OBJECTIVE: VITAL SIGNS: Temperature 98.4, pulse 99, respirations 18, oxygen saturation 92% on 1.5 L nasal cannula, and blood pressure 132/76. GENERAL: Well-appearing, middle-aged female, sitting up in chair with no signs of acute distress. PULMONARY: Equal chest rise and fall. Clear breath sounds bilaterally. No signs of acute respiratory distress. CARDIAC: Regular rate and rhythm. GI: Abdomen is soft, appropriately tender to palpation. Nondistended. Colostomy is well perfused and putting out a small amount of liquid brown stool. Midline abdominal wound VAC in place with serosanguineous output in canister. EXTREMITIES: 2+ pulses in all extremities. Gross motor and sensation are intact. No significant swelling noted. NEUROLOGIC: GCS is 15. LABORATORY FINDINGS: White count 15.0, hemoglobin 8.8, hematocrit 26.0, platelets 213. Sodium 149, potassium 3.3, chloride 111, bicarb 28, BUN 15, creatinine 0.81, glucose 125, phosphorus 1.6, magnesium 2.2. DIAGNOSTIC FINDINGS: There are no new diagnostic findings to discuss. ASSESSMENT: 1. Postop day 4 status post exploratory laparotomy, left colectomy with end colostomy and wound VAC placement due to sigmoid diverticulitis with pelvic abscess. 2. Ileus, resuming. 3. History of lupus and Crohn's. PLAN: Continue current full liquid diet. Continue IV fluids at 50 an hour. Continue ambulation and sitting up in the chair. Monitor for return of bowel function. Continue Zosyn. Wound Care to change the VAC today. This patient was discussed with Dr. Gutierrez before this dictation. Job ID: [id number]
[2020-06-11] MEDS: Enoxaparin Sodium 40 MG/0.4 ML SYRINGE SC SCH (20:22)
[2020-06-12] MEDS: Ketorolac Tromethamine 30 MG/ML VIAL IVP SCH ×5 (00:16→23:33)
[2020-06-12] MEDS: Morphine 4 MG/ML VIAL SLOW IVP PRN ×3 (00:17→10:07)
[2020-06-12] MEDS: Piperacillin/Tazobactam 4.5 GM in Sodium Chloride 0.9% 100 ML IVPB SCH ×4 (00:17→23:34)
[2020-06-12] MEDS: Ondansetron ODT 4 MG TAB SL PRN (05:40)
[2020-06-12 06:04] LABS: Anion Gap 12 mmol/L (10-20); BUN (Urea Nitrogen) 10 mg/dL (9.8-20.1); Calc. Creatinine Clearance 112 mL/min (70-130); Calcium 7.8 mg/dL (7.8-10.44); Carbon Dioxide 30 mmol/L (22-29); Chloride 108 mmol/L (98-107); Glucose 146 mg/dL (70-105); Magnesium 2.1 mg/dL (1.6-2.6); Phosphorus 2.5 mg/dL (2.3-4.7); Potassium 3.2 mmol/L (3.5-5.1); Sodium 147 mmol/L (136-145)
[2020-06-12 07:03] LABS: Hemoglobin 9.1 g/dL (12.0-16.0); Mean Corpuscular HGB CONC 33.2 g/dL (32.0-36.0); Mean Corpuscular Hemoglobin 32.1 pg (27.0-31.0); Mean Corpuscular Volume 96.8 fL (78.0-98.0); Platelet Count 196 thou/uL (130-400); RBC Distribution Width 11.8 % (11.5-14.5); Red Blood Cell (RBC) Count 2.83 mill/uL (4.20-5.40); White Blood Cell (WBC) Count 9.6 thou/uL (4.8-10.8)
[2020-06-12 07:04] LABS: Band 24 % (5-11); Eosinophils 4 % (0-10); Lymphocytes 6 % (21-51); MDiff Complete? YES; Monocytes 3 % (0-10); Neutrophil 63 % (42-75)
[2020-06-12 08:14] LABS: QuantiFERON-TB Gold Plus Indeterminate (Negative)
[2020-06-12] MEDS: Famotidine 20 MG TAB PO SCH ×2 (08:27→20:08)
[2020-06-12] MEDS ORDERED: Potassium Phosphate 30 MMOL in Sodium Chloride 0.9% 250 ML 250 ML IVPB SCH (08:30)
[2020-06-12] MEDS ORDERED: traMADol HCl 50 MG TAB PO PRN (11:08)
[2020-06-12] MEDS: Acetaminophen 500 MG TAB PO SCH ×3 (13:27→23:33)
[2020-06-12] MEDS: traMADol HCl 50 MG TAB PO SCH ×4 (13:29→23:34)
--- NOTE | 2020-06-12 14:30 | PRG ---
DATE OF SERVICE: 06/12/2020 SUBJECTIVE: The patient was seen this morning during rounds. She was sitting up in a chair with no signs of acute distress. She reported her pain is well controlled, but she just generally does not feel well. She did not have really any specific complaint other than feeling tired. She is tolerating her liquid diet, voiding sufficiently. Ostomy is starting to put out more. OBJECTIVE: VITAL SIGNS: Temperature 97.6, pulse 83, respirations 12, oxygen saturation 94% on room air, blood pressure 142/82. GENERAL: Well-appearing middle-aged female, sitting up in a chair with no signs of acute distress. PULMONARY: Equal chest rise and fall. Clear breath sounds bilaterally. No signs of acute respiratory distress. CARDIAC: Regular rate and rhythm. GI: Abdomen is soft, appropriately tender to palpation, nondistended. Colostomy is well perfused and there is a small amount of stool in the bag. Midline abdominal wound with VAC in place with minimal amount of serous output in canister. EXTREMITIES: 2+ pulses in all extremities. Gross motor and sensation intact. No significant swelling noted. NEURO: GCS is 15. LABORATORY FINDINGS: White count 9.6, hemoglobin 9.1, hematocrit 27.4, platelets 196. Sodium 147, potassium 3.2, chloride 108, bicarb 30, BUN 15, creatinine 0.77, glucose 146, phosphorus 2.5, magnesium 2.1. DIAGNOSTIC FINDINGS: There are no new diagnostic findings to discuss. ASSESSMENT: 1. Postop day #5, status post exploratory laparotomy with left colon resection and left colostomy, status post sigmoid diverticulitis with pelvic abscess. 2. History of lupus and Crohn's. PLAN: Continue current full liquid diet and IV fluids. Continue antibiotics. We will ask Physical Therapy to get the patient walking in the hallway more. Replace potassium, phos. Continue supportive care. We will see how the patient does over the next 24 to 48 hours, we may consider sending her to rehab versus home. This patient was seen and examined by Dr. Gutierrez and myself this morning during rounds. Job ID: [id number] [facility]
[2020-06-12] MEDS: Enoxaparin Sodium 40 MG/0.4 ML SYRINGE SC SCH (20:08)
[2020-06-13] MEDS: Ondansetron ODT 4 MG TAB SL PRN ×2 (03:17→20:51)
[2020-06-13] MEDS ORDERED: Promethazine HCl 25 MG/ML VIAL IM PRN (04:33)
[2020-06-13] MEDS: Acetaminophen 500 MG TAB PO SCH ×3 (05:25→17:09)
[2020-06-13] MEDS: traMADol HCl 50 MG TAB PO SCH ×3 (05:26→17:10)
[2020-06-13] MEDS: Ketorolac Tromethamine 30 MG/ML VIAL IVP SCH ×3 (05:29→17:11)
[2020-06-13 06:21] LABS: Anion Gap 9 mmol/L (10-20); BUN (Urea Nitrogen) 8 mg/dL (9.8-20.1); Calc. Creatinine Clearance 124 mL/min (70-130); Calcium 7.7 mg/dL (7.8-10.44); Carbon Dioxide 32 mmol/L (22-29); Chloride 107 mmol/L (98-107); Glucose 106 mg/dL (70-105); Phosphorus 2.7 mg/dL (2.3-4.7); Potassium 3.2 mmol/L (3.5-5.1); Sodium 145 mmol/L (136-145)
[2020-06-13 06:33] LABS: #Eosinphils 0.1 thou/uL (0.0-0.7); #Lymphocytes 0.7 thou/uL (1.20-3.40); #Monocytes 0.5 thou/uL (0.11-0.59); %Eosinophils 0.7 % (0.0-10.0); %Lymphocytes 6.7 % (21.0-51.0); %Monocytes 5.2 % (0.0-10.0); %Neutrophils 87.4 % (42.0-75.0); Hemoglobin 8.7 g/dL (12.0-16.0); Mean Corpuscular HGB CONC 33.6 g/dL (32.0-36.0); Mean Corpuscular Hemoglobin 32.3 pg (27.0-31.0); Mean Platelet Volume 8.8 fL (7.4-10.4); Platelet Count 181 thou/uL (130-400); RBC Distribution Width 11.8 % (11.5-14.5); White Blood Cell (WBC) Count 10.3 thou/uL (4.8-10.8)
[2020-06-13] MEDS: Piperacillin/Tazobactam 4.5 GM in Sodium Chloride 0.9% 100 ML IVPB SCH ×2 (09:22→17:09)
[2020-06-13] MEDS: Famotidine 20 MG TAB PO SCH ×2 (09:23→20:51)
--- NOTE | 2020-06-13 11:22 | PRG ---
DATE OF SERVICE: 06/13/2020 SUBJECTIVE: Ms. Paiz today is up in a chair. She complains of nausea. She has not vomited since last night. She is tolerating full liquids. She does not want to advance her diet. OBJECTIVE: VITAL SIGNS: Temperature 97.8 degrees, 74 heart rate, 137/83, respiratory rate 18. LUNGS: Clear to auscultation. CARDIAC: Rhythm. No murmur or gallop. ABDOMEN: Soft. Bowel sounds present. Colostomy healthy. She has significant colostomy output, stool and flatus. [place] has been removed. EXTREMITIES: Unremarkable, no edema. LABORATORY DATA: This morning, her white count is 10.3, hemoglobin 8.7. Differential is unremarkable. Sodium 145, potassium 3.2, chloride 107, carbon dioxide 32, BUN and creatinine 8 and 0.7 respectively, glucose 106. ASSESSMENT AND PLAN: Overall patient is doing well. She continues to have good GI function but yet she complains of nausea. She seems to be tolerating liquids. She is adequately hydrated. Her spirits seem to be low. At this point, would continue to work with her. She is out of bed. I have encouraged her to be ambulatory. She is on oral PPI prophylaxis. She continues on Zosyn. We will stop her Phenergan. She is on tramadol. Job ID: [id number]
[2020-06-13] MEDS: Enoxaparin Sodium 40 MG/0.4 ML SYRINGE SC SCH (20:51)
[2020-06-13] MEDS ORDERED: Metoclopramide HCl 10 MG/2 ML VIAL IVP PRN (21:35)
[2020-06-14] MEDS: Acetaminophen 500 MG TAB PO SCH ×4 (00:22→17:39)
[2020-06-14] MEDS: traMADol HCl 50 MG TAB PO SCH ×4 (00:22→17:39)
[2020-06-14] MEDS: Piperacillin/Tazobactam 4.5 GM in Sodium Chloride 0.9% 100 ML IVPB SCH ×3 (00:27→16:00)
[2020-06-14] MEDS ORDERED: Dextrose 50% Abboject 50 ML SYRINGE SLOW IVP PRN (08:53)
[2020-06-14] MEDS ORDERED: Dextrose 5% in Water 1,000 ML IV PRN (08:53)
[2020-06-14] MEDS ORDERED: HumaLOG 300 UNITS/3 ML VIAL SC PRN (08:53)
[2020-06-14] MEDS ORDERED: Potassium Chloride 40 MEQ in Premix Bag 1 BAG IVPB SCH (09:00)
[2020-06-14 09:49] LABS: Anion Gap 14 mmol/L (10-20); BUN (Urea Nitrogen) 8 mg/dL (9.8-20.1); Calc. Creatinine Clearance 118 mL/min (70-130); Calcium 7.5 mg/dL (7.8-10.44); Carbon Dioxide 27 mmol/L (22-29); Chloride 106 mmol/L (98-107); Glucose 94 mg/dL (70-105); Potassium 3.8 mmol/L (3.5-5.1); Sodium 143 mmol/L (136-145)
[2020-06-14] MEDS ORDERED: PROPOFOL 200 MG/20 ML VIAL ONE (10:02)
[2020-06-14] MEDS ORDERED: PHENYLEPHRINE-NS 100 MCG/ML 10 ML SYRINGE ONE (10:02)
[2020-06-14] MEDS ORDERED: Succinylcholine 200 MG/10 ml SYRINGE FS ONE (10:02)
[2020-06-14] MEDS ORDERED: Lidocaine 1% PF 5 ML VIAL ONE (10:02)
[2020-06-14] MEDS ORDERED: Dexamethasone 20 MG/5 ML VIAL ONE (10:02)
[2020-06-14] MEDS ORDERED: Glycopyrrolate 0.2 MG/ML 5 ML SYRINGE ONE (10:02)
[2020-06-14] MEDS ORDERED: Rocuronium Bromide 10 MG/ML (10ML VIAL) ONE (10:02)
--- NOTE | 2020-06-14 10:42 | CT ---
EXAM: CT Abdomen Pelvis W Con PROVIDED CLINICAL HISTORY: Postop pain COMPARISON: 06/07/2020 FINDINGS: Small bilateral pleural fluid with bibasilar subsegmental atelectasis. Free intraperitoneal fluid is demonstrated about the hepatic margin with areas of scalloping of the l iver capsule. The liver, spleen, pancreas, kidneys and adrenal glands appear otherwise unremarkable. Interval changes of partial distal colectomy with left lower quadrant end colostomy. Oral contrast wa s refused by the patient, which limits evaluation. There are several small foci of extraluminal gas is demonstrated within the central pelvis. There are foci of somewhat circumscribed fluid density whi ch appear probably not related to small bowel within the anterolateral aspects of the left and right lower quadrants. No definite rim enhancement is evident. The larger of these measures approxima tely 9.6 cm in greatest craniocaudal dimension. There is no evidence for bowel obstruction. No localized intraperitoneal inflammatory fat stranding i s evident. Soft tissue changes involving the abdominal wall related to interval surgical change. A focus of gas is seen within the urinary bladder, nonspecific. The regional major vascular structures appear unremarkable. The osseous structures demonstrate no concerning lytic or blastic lesions. IMPRESSION: 1. Interval postoperative change with minimal pneumoperitoneum, minimal free intraperitoneal fluid4 a nd lower abdominal fluid collections as described. 2. Bilateral pleural fluid and adjacent subsegmental atelectatic change. 3. Nonspecific focus of gas within the urinary bladder. Correlate for recent catheterization.
[2020-06-14] MEDS: Famotidine 20 MG TAB PO SCH (11:04)
--- NOTE | 2020-06-14 12:49 | PRG ---
DATE OF SERVICE: 06/14/2020 SUBJECTIVE: Ms. Paiz is not doing well despite having stool and flatus output of her colostomy. She continues to complain of nausea and occasional vomiting. Vomiting is low volume, 50 to 100 mL of bilious material. She states today that she had her children and she wants to just . She is tired of all this. OBJECTIVE: VITAL SIGNS: 98.4 degrees, heart rate 81, 110/74. Urine output is acceptable. She is having stool and flatus out of her colostomy. LUNGS: Clear to auscultation. CARDIAC: Regular rate and rhythm. ABDOMEN: Soft. Bowel sounds present. Nontympanitic. EXTREMITIES: Edematous. Her colostomy is edematous on the medial 3/4. There is some separation of the colostomy edge to the skin medially and there was cloudy fluid and hematoma draining out and dye was expressed around it. LABORATORY DATA: Labs not obtained today earlier, but ordered. Subsequently, sodium 143, potassium 3.8, BUN 8, creatinine 0.73, calcium 7.5. Repeat CBC is pending. The patient's CAT scan has been performed by the time ordered at this morning obtained because of the discrepancy between her vomiting and having good colostomy output. CAT scan does not reveal any obstructive process. She does have some fluid collections 6 to 9 cm in the right and left lower quadrants that do not enhance in the field just postoperative. There is a fluid collection beneath the colostomy that probably communicates with it accounting for the drainage around it. There are some residual fluid and air collections in the pelvis as expected would be present based on her postoperative state. ASSESSMENT AND PLAN: 1. Malnutrition. Begin TPN. 2. Occasional vomiting despite good colostomy output. Expect this will resolve with time. Continue PPI, TPN, wait for bowel function to resume completely. 3. Colostomy malfunction. We will plan to go to the operating room and evacuate the fluid around this and try to resolve the colostomy problems which are edematous. It does communicate with intraabdominal fluid collection, which does not appear to be infectious, but will evacuate this to see if this will help her condition. 4. Depression and lack of motivation. I have talked to the patient's . The patient had a negative reaction to the Dilaudid TALENT DIRECTOR which was discontinued 2 days ago. She is slightly better from the weekend, but still depressed and not responding appropriately. We would plan to continue supportive care. The is aware and will continue to treat her and hopefully with time this will resolve. 5. Perforated diverticulitis with fecal peritonitis. Continue wound care and wound VAC care. Job ID: [id number]
[2020-06-14] MEDS ORDERED: Iopamidol-370 76% 500 ML 1 ML ONE (13:26)
[2020-06-14] MEDS ORDERED: SODIUM ACETATE IV SCH (14:00)
[2020-06-14] MEDS ORDERED: [UNRECOGNIZED DRUG - OTHER] IV SCH (14:00)
[2020-06-14] MEDS ORDERED: CALCIUM GLUCONATE IV SCH (14:00)
[2020-06-14] MEDS ORDERED: Fentanyl 100 MCG/2 ML VIAL ONE ×4 (15:12→18:32)
[2020-06-14] MEDS ORDERED: Promethazine HCl 25 MG/ML VIAL SLOW IVP PRN (17:19)
[2020-06-14] MEDS ORDERED: HYDROmorphone 2 MG/ML VIAL SLOW IVP PRN (17:19)
[2020-06-14] MEDS ORDERED: Meperidine HCl/PF 25 MG/ML VIAL SLOW IVP PRN (17:19)
[2020-06-14] MEDS ORDERED: Ondansetron HCl/PF 4 MG/2 ML Vial IVP PRN (17:19)
[2020-06-14] MEDS ORDERED: Promethazine HCl 25 MG/ML VIAL IM PRN ×2 (17:19→23:52)
[2020-06-14] MEDS ORDERED: Dextrose 50% Abboject 50 ML SYRINGE ONE (18:09)
[2020-06-14] MEDS ORDERED: Ketorolac Tromethamine 30 MG/ML VIAL ONE (18:22)
--- NOTE | 2020-06-14 18:58 | OP ---
DATE OF PROCEDURE: 06/14/2020 PREOPERATIVE DIAGNOSES: History of diverticulitis, Lenka's procedure with colostomy malfunction, and necrosis gangrene. POSTOPERATIVE DIAGNOSES: History of diverticulitis, Lenka's procedure with colostomy malfunction, necrosis gangrene, peritonitis, and wound dehiscence. PROCEDURES PERFORMED: Exploratory laparotomy, abdominal washout, mobilization of the transverse left colon, resection of the gangrenous colon segment with formation of new colostomy through the same site left lower quadrant, aggressive abdominal washout and irrigation, and closure of midline dehiscence. ANESTHESIA: General. DRAIN: #19 Gold BENNIE drain right lower quadrant exit into the pelvis toward the colostomy site. DESCRIPTION OF PROCEDURE: The patient was taken to the operating room, where under general anesthesia in supine position, colostomy and wound VAC were removed. Abdomen was prepared with Betadine, draped in routine fashion. Colostomy was edematous and there was cloudy fluid draining from the medial edge of the colostomy, where it them from skin. As I took down the wound VAC, removed the justice, there was fecal drainage from the upper midline fascia, which was and dehisced. This was evacuated. All justice removed. PDS suture removed. Abdominal cavity entered. Colostomy taken down the left lower quadrant. Left colon mobilized completing mobilization of the distal transverse colon and mesentery using the LigaSure and cautery for hemostasis. Taken down the gastrocolic ligament, mobilizing the left colon, firing the stapler resecting the gangrenous segment of the colon, it was broken down and submitting the specimen to Pathology. Omentum that was inflamed, devascularized, taken down with the LigaSure. As the left colon and transverse colon were mobilized to reach through the preexisting colostomy site. Abdominal cavity completely irrigated, irrigating all subhepatic and subdiaphragmatic spaces, mobilizing the small bowel, and irrigating interloop small bowel. Abdominal cavity thoroughly irrigated with about 8 L of saline solution, irrigant evacuated. A 19 Gold BENNIE drain was placed through an exit site in right lower quadrant, placed into the pelvis, brought up towards the old colostomy site. Old colostomy site was aggressively irrigated, evacuated hematoma and irrigated. Good hemostasis noted. Drain secured with 3-0 nylon suture, OpSite dressing applied. At this point, the colon was brought out through the old colostomy site left lower quadrant. Midline fascia irrigated. Midline fascia closed in the upper portion with interrupted [id number] sutures and #1 PDS. Internal retention suture of #1 PDS was placed in the upper abdomen. Lower fascia closed with continuous suture of #1 PDS. Skin and subcutaneous tissues irrigated. Skin approximated in the midline about the umbilicus, left open otherwise and Wound Care will place a wound VAC after colostomy was matured. The staple line removed. Colostomy matured with 4 Matheus sutures of 3-0 Vicryl. Simple suture of 3-0 Vicryl completed. Colostomy maturation and colostomy appliance secured. Wound Care team placed a wound VAC. NG tube has been palpated in the stomach in proper position. The patient tolerated the procedure well. Job ID: [id number]
[2020-06-14] MEDS: Morphine 4 MG/ML VIAL SLOW IVP PRN ×2 (20:42→22:45)
[2020-06-14] MEDS: CALCIUM GLUCONATE IV SCH (22:16)
[2020-06-14] MEDS: Enoxaparin Sodium 40 MG/0.4 ML SYRINGE SC SCH (22:16)
[2020-06-14] MEDS: [UNRECOGNIZED DRUG - OTHER] IV SCH (22:16)
[2020-06-14] MEDS: SODIUM ACETATE IV SCH (22:16)
[2020-06-14] MEDS ORDERED: Communication Order-Pharmacy FS SCH (23:45)
[2020-06-14] MEDS ORDERED: Zolpidem Tartrate 5 MG TAB PO PRN (23:52)
[2020-06-14] MEDS ORDERED: diphenhydrAMINE 25 MG CAP PO PRN (23:52)
[2020-06-14] MEDS ORDERED: Ondansetron PF 4 MG/2 ML Vial IVP PRN (23:52)
[2020-06-14] MEDS ORDERED: diphenhydrAMINE 50 MG/ML VIAL IM PRN (23:52)
[2020-06-14] MEDS ORDERED: Naloxone HCl 0.4 mg/ml Vial IV PRN (23:52)
[2020-06-14] MEDS ORDERED: diphenhydrAMINE 50 MG/ML VIAL IVP PRN (23:52)
[2020-06-15] MEDS: Ketorolac Tromethamine 30 MG/ML VIAL IVP SCH ×5 (01:10→23:33)
[2020-06-15] MEDS: fentaNYL Citrate/PF 2,000 MCG in Sodium Chloride 0.9% 60 ML IV PRN ×2 (01:23→21:57)
[2020-06-15] MEDS: Piperacillin/Tazobactam 4.5 GM in Sodium Chloride 0.9% 100 ML IVPB SCH ×4 (01:29→23:29)
[2020-06-15 05:33] LABS: #Lymphocytes 0.7 thou/uL (1.20-3.40); #Monocytes 0.7 thou/uL (0.11-0.59); %Basophils 0.2 % (0.0-1.0); %Lymphocytes 5.8 % (21.0-51.0); %Monocytes 5.6 % (0.0-10.0); %Neutrophils 88.3 % (42.0-75.0); Hemoglobin 7.7 g/dL (12.0-16.0); Mean Corpuscular HGB CONC 33.8 g/dL (32.0-36.0); Mean Corpuscular Hemoglobin 31.8 pg (27.0-31.0); Mean Platelet Volume 8.9 fL (7.4-10.4); Platelet Count 362 thou/uL (130-400); RBC Distribution Width 12.1 % (11.5-14.5); Red Blood Cell (RBC) Count 2.41 mill/uL (4.20-5.40); White Blood Cell (WBC) Count 12.5 thou/uL (4.8-10.8)
[2020-06-15 06:11] LABS: Anion Gap 11 mmol/L (10-20); BUN (Urea Nitrogen) 9 mg/dL (9.8-20.1); Calc. Creatinine Clearance 114 mL/min (70-130); Calcium 7.4 mg/dL (7.8-10.44); Carbon Dioxide 30 mmol/L (22-29); Chloride 108 mmol/L (98-107); Glucose 148 mg/dL (70-105); Magnesium 2.2 mg/dL (1.6-2.6); Potassium 3.6 mmol/L (3.5-5.1); Sodium 145 mmol/L (136-145)
--- NOTE | 2020-06-15 15:38 | PRG ---
DATE OF SERVICE: 06/15/2020 SUBJECTIVE: Ms. Paiz looks much better today. Her color looks better. She has better spirits. Her pain is less. Overall, she feels much better since her operation yesterday. LABORATORY DATA: This morning, her hemoglobin is 7.7, white count 12. Basic metabolic profile is normal. Glucose is 144 to 118 on TPN. OBJECTIVE: VITAL SIGNS: 97.8 degrees, 85, 16, 134/77. LUNGS: Clear to auscultation. CARDIAC: Regular rate and rhythm without murmur or gallop. ABDOMEN: Soft. Colostomy healthy. Wound VAC present. EXTREMITIES: Unremarkable. ASSESSMENT AND PLAN: 1. Wound VAC. Open wound to be changed tomorrow. We will view her wound then if possible. 2. Malnutrition. Continue TPN. 3. Postoperative ileus as expected. NG tube removed today because a very little output. Her colostomy is healthy. Hopefully, we can advance her to liquids in the morning. 4. Sepsis, peritonitis, gangrenous colon, status post colostomy revision, laparotomy, abdominal washout. The patient was placed on Fentanyl pump for better pain control last night and this was working effectively for her. Job ID: [id number]
[2020-06-15] MEDS: Lactated Ringer's 1,000 ML IV SCH (16:54)
[2020-06-15] MEDS: SODIUM ACETATE IV SCH (18:39)
[2020-06-15] MEDS: CALCIUM GLUCONATE IV SCH (18:39)
[2020-06-15] MEDS: [UNRECOGNIZED DRUG - OTHER] IV SCH (18:39)
[2020-06-15] MEDS: Enoxaparin Sodium 40 MG/0.4 ML SYRINGE SC SCH (20:30)
[2020-06-16] MEDS: Ketorolac Tromethamine 30 MG/ML VIAL IVP SCH ×4 (05:02→23:15)
[2020-06-16 06:53] LABS: #Eosinphils 0.1 thou/uL (0.0-0.7); #Lymphocytes 1.2 thou/uL (1.20-3.40); #Monocytes 1.7 thou/uL (0.11-0.59); #Neutrophils 11.5 thou/uL (1.40-6.50); %Basophils 0.1 % (0.0-1.0); %Eosinophils 0.8 % (0.0-10.0); %Lymphocytes 8.1 % (21.0-51.0); %Monocytes 11.4 % (0.0-10.0); %Neutrophils 79.6 % (42.0-75.0); Hemoglobin 6.8 g/dL (12.0-16.0); Mean Corpuscular HGB CONC 32.3 g/dL (32.0-36.0); Mean Corpuscular Hemoglobin 31.1 pg (27.0-31.0); Mean Corpuscular Volume 96.3 fL (78.0-98.0); Mean Platelet Volume 8.7 fL (7.4-10.4); Platelet Count 457 thou/uL (130-400); RBC Distribution Width 12.3 % (11.5-14.5); Red Blood Cell (RBC) Count 2.17 mill/uL (4.20-5.40); White Blood Cell (WBC) Count 14.4 thou/uL (4.8-10.8)
[2020-06-16 07:01] LABS: BUN (Urea Nitrogen) 12 mg/dL (9.8-20.1); Calc. Creatinine Clearance 125 mL/min (70-130); Calcium 7.7 mg/dL (7.8-10.44); Chloride 107 mmol/L (98-107); Glucose 94 mg/dL (70-105); Potassium 3.2 mmol/L (3.5-5.1); Sodium 145 mmol/L (136-145)
[2020-06-16 07:19] LABS: Carbon Dioxide 28 mmol/L (22-29)
[2020-06-16 08:17] LABS: Anion Gap 13 mmol/L (10-20)
[2020-06-16] MEDS: Piperacillin/Tazobactam 4.5 GM in Sodium Chloride 0.9% 100 ML IVPB SCH ×3 (09:09→23:14)
[2020-06-16] MEDS ORDERED: Potassium Chloride 20 MEQ TAB PO SCH (09:30)
--- NOTE | 2020-06-16 12:36 | PRG ---
DATE OF SERVICE: 06/16/2020 SUBJECTIVE: Nieves Paiz is doing well today. She has had her [place] removed. She has been able to void. OBJECTIVE: VITAL SIGNS: Temperature 97.5 degrees, pulse 86, blood pressure 116/60. LUNGS: Clear to auscultation. CARDIAC: Regular rate and rhythm without murmur or gallop. ABDOMEN: Soft, occasional bowel sounds. Colostomy healthy. Midline wound VAC looks in place, Wound Care to change that today. Output from her drain is not recorded and it is serosanguineous, slightly cloudy. EXTREMITIES: Unremarkable. LABORATORY DATA: White count 14, hemoglobin 6.8. Sodium 145, potassium 3.2, BUN 12, creatinine 0.69. ASSESSMENT AND PLAN: 1. The patient is doing well. She has tolerated her NG tube out. She has not had any nausea or vomiting. Plan would be to start her on liquids today. Give her potassium replacement for hypokalemia. Recheck her labs in the morning. Continue TPN for malnutrition. Continue intravenous antibiotics as peritonitis is improving. Colostomy is healthy. Plan to increase activity. KVO IV fluids. 2. Anemia. Check her hemoglobin tonight and tomorrow. Type and screen her. Job ID: [id number]
[2020-06-16] MEDS: CALCIUM GLUCONATE IV SCH (14:47)
[2020-06-16] MEDS: SODIUM ACETATE IV SCH (14:47)
[2020-06-16] MEDS: [UNRECOGNIZED DRUG - OTHER] IV SCH (14:47)
[2020-06-16 17:03] LABS: #Eosinphils 0.2 thou/uL (0.0-0.7); #Lymphocytes 1.4 thou/uL (1.20-3.40); #Monocytes 1.4 thou/uL (0.11-0.59); #Neutrophils 10.3 thou/uL (1.40-6.50); %Eosinophils 1.7 % (0.0-10.0); %Lymphocytes 10.3 % (21.0-51.0); %Monocytes 10.6 % (0.0-10.0); %Neutrophils 77.3 % (42.0-75.0); Hemoglobin 7.1 g/dL (12.0-16.0); Mean Corpuscular HGB CONC 33.8 g/dL (32.0-36.0); Mean Corpuscular Hemoglobin 31.7 pg (27.0-31.0); Mean Platelet Volume 8.3 fL (7.4-10.4); Platelet Count 523 thou/uL (130-400); RBC Distribution Width 12.2 % (11.5-14.5); Red Blood Cell (RBC) Count 2.23 mill/uL (4.20-5.40); White Blood Cell (WBC) Count 13.3 thou/uL (4.8-10.8)
[2020-06-16 17:20] LABS: Anion Gap 14 mmol/L (10-20); BUN (Urea Nitrogen) 13 mg/dL (9.8-20.1); Calc. Creatinine Clearance 118 mL/min (70-130); Calcium 7.8 mg/dL (7.8-10.44); Carbon Dioxide 30 mmol/L (22-29); Chloride 104 mmol/L (98-107); Glucose 132 mg/dL (70-105); Potassium 3.5 mmol/L (3.5-5.1); Sodium 144 mmol/L (136-145)
[2020-06-16] MEDS: Enoxaparin Sodium 40 MG/0.4 ML SYRINGE SC SCH (20:20)
[2020-06-16] MEDS: fentaNYL Citrate/PF 2,000 MCG in Sodium Chloride 0.9% 60 ML IV PRN (23:00)
[2020-06-17] MEDS: Lactated Ringer's 1,000 ML IV SCH (01:33)
[2020-06-17] MEDS: Ketorolac Tromethamine 30 MG/ML VIAL IVP SCH ×2 (05:16→11:29)
[2020-06-17 06:32] LABS: Anion Gap 14 mmol/L (10-20); BUN (Urea Nitrogen) 11 mg/dL (9.8-20.1); Calc. Creatinine Clearance 120 mL/min (70-130); Calcium 7.9 mg/dL (7.8-10.44); Carbon Dioxide 28 mmol/L (22-29); Chloride 104 mmol/L (98-107); Glucose 92 mg/dL (70-105); Sodium 142 mmol/L (136-145)
[2020-06-17 06:35] LABS: Band 11 % (5-11); Eosinophils 2 % (0-10); Hemoglobin 7.3 g/dL (12.0-16.0); Hypochromia SLIGHT = 6-15 cells (100X) (0-5/hpf); Lymphocytes 5 % (21-51); MDiff Complete? YES; Mean Corpuscular HGB CONC 32.5 g/dL (32.0-36.0); Mean Corpuscular Hemoglobin 30.6 pg (27.0-31.0); Mean Corpuscular Volume 94.3 fL (78.0-98.0); Mean Platelet Volume 8.3 fL (7.4-10.4); Metamyelocyte 1 % (0-0); Monocytes 15 % (0-10); Neutrophil 66 % (42-75); Nucleated RBC 1 % (0); Platelet Count 536 thou/uL (130-400); Platelet Morphology Comment Appears Increased; RBC Distribution Width 12.2 % (11.5-14.5); Red Blood Cell (RBC) Count 2.38 mill/uL (4.20-5.40); White Blood Cell (WBC) Count 12.6 thou/uL (4.8-10.8)
[2020-06-17] MEDS: Piperacillin/Tazobactam 4.5 GM in Sodium Chloride 0.9% 100 ML IVPB SCH ×3 (09:21→22:31)
[2020-06-17] MEDS ORDERED: Pantoprazole 40 MG VIAL IVP SCH (09:45)
[2020-06-17] MEDS: CALCIUM GLUCONATE IV SCH (14:44)
[2020-06-17] MEDS: [UNRECOGNIZED DRUG - OTHER] IV SCH (14:44)
[2020-06-17] MEDS: SODIUM ACETATE IV SCH (14:44)
[2020-06-17] MEDS ORDERED: Acetaminophen 500 MG TAB PO PRN (15:21)
[2020-06-17] MEDS ORDERED: traMADol HCl 50 MG TAB PO PRN (15:21)
[2020-06-17] MEDS ORDERED: Morphine 4 MG/ML VIAL SLOW IVP PRN (15:21)
[2020-06-17] MEDS ORDERED: Ibuprofen 600 MG TAB PO PRN (15:21)
--- NOTE | 2020-06-17 16:00 | PRG ---
DATE OF SERVICE: 06/17/2020 SUBJECTIVE: Nieves Paiz is doing well today. OBJECTIVE: VITAL SIGNS: 98 degrees, 93, 128/73. LUNGS: Clear to auscultation. CARDIAC: Regular rate and rhythm without murmur or gallop. ABDOMEN: Soft. Bowel sounds present. Wound VAC in place. Colostomy healthy. There is stool and flatus in her colostomy bag. Drainage from her BENNIE drain is 100 mL that is serosanguineous. LUNGS: Clear to auscultation. EXTREMITIES: Unremarkable. LABORATORY DATA: White count 12, hemoglobin stable at 7.3. Basic metabolic profile is normal. ASSESSMENT/PLAN: Patient's gastrointestinal function is improving. We will order full liquids today and regular diet tomorrow. If she tolerates this TPN can to weaned. She perhaps might be ready to go home over the weekend with home health nursing to help her with colostomy care and on oral Augmentin for 5 to 6 days. Overall, she is doing better. Activity level is good. Mental status is better. Job ID: [id number]
[2020-06-17] MEDS: traMADol HCl 50 MG TAB PO PRN ×2 (17:00→22:11)
[2020-06-17] MEDS: Enoxaparin Sodium 40 MG/0.4 ML SYRINGE SC SCH (22:09)
[2020-06-17] MEDS: Famotidine 20 MG TAB PO SCH (22:11)
[2020-06-18] MEDS: Piperacillin/Tazobactam 4.5 GM in Sodium Chloride 0.9% 100 ML IVPB SCH ×4 (04:18→21:14)
[2020-06-18] MEDS: traMADol HCl 50 MG TAB PO PRN ×2 (04:24→21:14)
[2020-06-18] MEDS: Ketorolac Tromethamine 30 MG/ML VIAL IVP PRN ×2 (04:29→18:46)
[2020-06-18 05:37] LABS: Anion Gap 12 mmol/L (10-20); BUN (Urea Nitrogen) 11 mg/dL (9.8-20.1); Calc. Creatinine Clearance 125 mL/min (70-130); Calcium 7.8 mg/dL (7.8-10.44); Carbon Dioxide 29 mmol/L (22-29); Chloride 104 mmol/L (98-107); Glucose 104 mg/dL (70-105); Potassium 3.7 mmol/L (3.5-5.1); Sodium 141 mmol/L (136-145)
[2020-06-18 05:54] LABS: Band 7 % (5-11); Eosinophils 2 % (0-10); Hemoglobin 6.7 g/dL (12.0-16.0); Lymphocytes 15 % (21-51); MDiff Complete? YES; Mean Corpuscular HGB CONC 33.1 g/dL (32.0-36.0); Mean Corpuscular Hemoglobin 31.4 pg (27.0-31.0); Mean Corpuscular Volume 94.9 fL (78.0-98.0); Mean Platelet Volume 8.1 fL (7.4-10.4); Monocytes 3 % (0-10); Neutrophil 73 % (42-75); Platelet Count 682 thou/uL (130-400); Platelet Morphology Comment Appears Increased; RBC Distribution Width 12.3 % (11.5-14.5); Red Blood Cell (RBC) Count 2.13 mill/uL (4.20-5.40); White Blood Cell (WBC) Count 13.3 thou/uL (4.8-10.8)
[2020-06-18] MEDS ORDERED: Pantoprazole 40 MG VIAL IVP SCH (09:00)
[2020-06-18] MEDS: Famotidine 20 MG TAB PO SCH ×2 (11:27→21:14)
--- NOTE | 2020-06-18 23:00 | PRG ---
DATE OF SERVICE: 06/18/2020 SUBJECTIVE: Ms. Paiz is postoperative day #4 from a laparotomy, abdominal washout, and resection of gangrenous colon segment at the level of her colostomy. She is also postoperative day #11 from a laparotomy and left colon resection for diverticulitis and peritonitis. The patient has apparently been doing better since her second colon resection. She tells me that she has pain when she gets out of bed as expected, but otherwise is feeling better. Although she has written for a regular diet, she tells me she has basically been drinking a clear liquid diet because the food she has been brought does not comply with her gluten-free diet. When I checked the orders, however, a gluten-free diet had not been ordered for her and this was changed. She tells me she does tolerate her liquids and her ostomy has been working well. She has been ambulating. OBJECTIVE: VITAL SIGNS: Temperature is 98.6, her pulse has trended upwards over the past few days and this has been over 100 several times yesterday and today. Her blood pressure is stable at 114/69. LUNGS: Clear to auscultation. ABDOMEN: Soft with normoactive bowel sounds. Wound VAC is in place on the lower abdomen. EXTREMITIES: Unremarkable. LABORATORY DATA: Her white blood cell count is elevated at 13.3; her hemoglobin is 6.7, down from 7.3 yesterday; platelet count is high at 682. Her basic metabolic panel is entirely normal. ASSESSMENT: She is in general stable, following her 2 colon resections. BENNIE drain is still in and has some unusual colored drainage and I therefore will not remove it yet at this time. Her ostomy appears to be functioning well on the left lower quadrant. Her anemia is somewhat concerning. I have ordered a transfusion for this evening. I will recheck her laboratory studies tomorrow. As she has had such significant anemia, I will hold her Lovenox as this may be contributory. She is encouraged to continue to ambulate to minimize chance of deep venous thrombosis. Job ID: [id number]
[2020-06-19] MEDS: Enoxaparin Sodium 40 MG/0.4 ML SYRINGE SC SCH (00:51)
[2020-06-19] MEDS: SODIUM ACETATE IV SCH (00:51)
[2020-06-19] MEDS: CALCIUM GLUCONATE IV SCH (00:51)
[2020-06-19] MEDS: [UNRECOGNIZED DRUG - OTHER] IV SCH (00:51)
[2020-06-19] MEDS: traMADol HCl 50 MG TAB PO PRN ×3 (03:22→20:10)
[2020-06-19] MEDS: Piperacillin/Tazobactam 4.5 GM in Sodium Chloride 0.9% 100 ML IVPB SCH ×4 (03:23→22:33)
[2020-06-19 06:56] LABS: Band 5 % (5-11); Hemoglobin 7.3 g/dL (12.0-16.0); Hypochromia SLIGHT = 6-15 cells (100X) (0-5/hpf); Lymphocytes 3 % (21-51); MDiff Complete? YES; Mean Corpuscular HGB CONC 32.6 g/dL (32.0-36.0); Mean Corpuscular Volume 92.2 fL (78.0-98.0); Mean Platelet Volume 7.6 fL (7.4-10.4); Monocytes 27 % (0-10); Neutrophil 65 % (42-75); Platelet Count 797 thou/uL (130-400); Platelet Morphology Comment Appears Increased; RBC Distribution Width 12.8 % (11.5-14.5); Red Blood Cell (RBC) Count 2.43 mill/uL (4.20-5.40)
[2020-06-19] MEDS: Famotidine 20 MG TAB PO SCH ×2 (09:12→20:10)
--- NOTE | 2020-06-19 14:13 | PRG ---
DATE OF SERVICE: 06/19/2020 SUBJECTIVE: Ms. Paiz is postoperative day #5 from laparotomy, abdominal washout, resection of gangrenous colon segment at the level of her colostomy. She is postoperative day #12 from laparotomy, left colon resection for diverticulitis, peritonitis. Yesterday, she was doing fairly well, but was feeling weak, becoming progressively tachycardic. Her hemoglobin level was 6.7. I ordered 1 unit of packed red blood cell transfusion. Today, her hemoglobin level has gone up to 7.3. Her heart rate has been down in the 80s and mid 90s. Today, she complains of back pain and soreness. She is still limited in what she is eating because of her gluten and soy intolerance. She tells me she is still mostly drinking fluid. Her ostomy is continuing to work well. PHYSICAL EXAMINATION: VITAL SIGNS: She is afebrile. Pulse 94, blood pressure 128/79. LUNGS: Clear to auscultation. ABDOMEN: Soft with normoactive bowel sounds. Wound VAC is in place. EXTREMITIES: Unremarkable. LABORATORY DATA: As mentioned, her hemoglobin is 7.3. This is the same as it was two days previously. Her chemistries were not rechecked today. ASSESSMENT: The patient appears to be stable following a unit of transfusion. I did discontinue her Lovenox yesterday because of her progressive anemia. She understands the importance of ambulating regularly to avoid DVT. I suspect she is stable for discharge, however, since I just transfused her late at night, I felt it is better to observe her to make sure that she does not have progressive anemia before discharging her. Labs will be ordered in the morning and if these are stable, she had to be stable for discharge home with outpatient wound care with wound VAC and ostomy assistance. Job ID: [id number]
[2020-06-19] MEDS: Ketorolac Tromethamine 30 MG/ML VIAL IVP PRN (20:11)
[2020-06-20] MEDS: traMADol HCl 50 MG TAB PO PRN ×2 (04:16→20:55)
[2020-06-20] MEDS: Piperacillin/Tazobactam 4.5 GM in Sodium Chloride 0.9% 100 ML IVPB SCH ×3 (04:17→15:45)
[2020-06-20 05:12] LABS: Anion Gap 14 mmol/L (10-20); BUN (Urea Nitrogen) 7 mg/dL (9.8-20.1); Calc. Creatinine Clearance 109 mL/min (70-130); Carbon Dioxide 27 mmol/L (22-29); Chloride 101 mmol/L (98-107); Glucose 84 mg/dL (70-105); Potassium 3.8 mmol/L (3.5-5.1); Sodium 138 mmol/L (136-145)
[2020-06-20 05:31] LABS: #Eosinphils 0.3 thou/uL (0.0-0.7); #Lymphocytes 1.2 thou/uL (1.20-3.40); #Monocytes 1.6 thou/uL (0.11-0.59); #Neutrophils 10.9 thou/uL (1.40-6.50); %Basophils 0.3 % (0.0-1.0); %Eosinophils 2.2 % (0.0-10.0); %Lymphocytes 8.7 % (21.0-51.0); %Monocytes 11.6 % (0.0-10.0); %Neutrophils 77.3 % (42.0-75.0); Hemoglobin 5.3 g/dL (12.0-16.0); Mean Corpuscular HGB CONC 33.1 g/dL (32.0-36.0); Mean Corpuscular Hemoglobin 30.5 pg (27.0-31.0); Mean Corpuscular Volume 92.2 fL (78.0-98.0); Mean Platelet Volume 7.5 fL (7.4-10.4); Platelet Count 1047 thou/uL (130-400); RBC Distribution Width 12.8 % (11.5-14.5); Red Blood Cell (RBC) Count 1.74 mill/uL (4.20-5.40); White Blood Cell (WBC) Count 14.1 thou/uL (4.8-10.8)
[2020-06-20 08:01] LABS: Hemoglobin 7.8 g/dL (12.0-16.0)
[2020-06-20] MEDS: Morphine 2 MG/ML VIAL SLOW IVP PRN ×2 (09:39→15:43)
--- NOTE | 2020-06-20 17:29 | PRG ---
DATE OF SERVICE: SUBJECTIVE: Ms. Paiz is doing well today. Over the weekend, hemoglobin did drop to 6.7. She was given 1 unit of blood, it was 7.3 yesterday. This morning, hemoglobin was checked, it was 5.3, rechecked but actually 7.8. Basic metabolic profile is normal. The patient's wound VAC was changed this morning. She had a slight amount of bleeding at the skin edges and a wet-to-dry dressing was applied. Rechecked this afternoon, wound VAC reapplied. There is no evidence of bleeding. Her vital signs remained stable. She is tolerating her diet. OBJECTIVE: LUNGS: Clear to auscultation. CARDIAC: Rhythm without murmur or gallop. ABDOMEN: Soft, nontender, obese. Wound granulating. Colostomy healthy. VITAL SIGNS: 99.3, 99, 118/65. ASSESSMENT/PLAN: Perforated diverticulitis with Lenka's procedure requiring reoperation on 06/08/2020 for revision of her colostomy and colon resection due to necrotic colon, abdominal washout on 06/14/2020. Central line for TPN. The patient will be discharged home tomorrow on oral antibiotics. We will place her on that tonight. She will have [facility], wound VAC care, colostomy support. Job ID: [id number]
--- NOTE | 2020-06-20 17:46 | DIS ---
DATE OF ADMISSION: 06/06/2020 DATE OF DISCHARGE: 06/21/2020 DISCHARGE DIAGNOSES: 1. Diverticulitis, peritonitis, colostomy necrosis and gangrene, and sepsis. Blood cultures negative since admission. Anemia, transfused 1 unit of blood, discharged with a hemoglobin of 7.8. 2. Thrombocytosis 1047. HISTORY: A 54-year-old female presenting with diverticulitis. 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 She took Flagyl, then reported to the emergency room with findings of pneumoperitoneum and diverticulitis on CAT scan. She was treated nonoperatively initially, but deteriorated requiring emergency operation, laparotomy, colostomy, and Lenka's procedure. Postoperatively, she seemed to be doing better, but had to return to the operating room on 06/14/2020, due to colostomy necrosis, undergoing washout as she developed drainage around her colostomy edge and medial skin, even though CAT scan did not reveal any acute problems. She postoperatively convalesced, tolerated her diet. Mental status improved. It was determined in this hospitalization, she had an adverse reaction to Dilaudid and we avoided that. She was placed on TPN. Her gastrointestinal tract resumed function. At the time of discharge, she has been discharged home with Tylenol, Advil, Ultram for pain, and Augmentin p.o. b.i.d. for 5 days. Follow up regarding outpatient wound care. Home health for colostomy care and VAC care. Follow up in my office in 2 to 3 weeks. She will be off work for 2 months. Job ID: [id number]
[2020-06-20 18:05] LABS: #Eosinphils 0.2 thou/uL (0.0-0.7); #Lymphocytes 1.3 thou/uL (1.20-3.40); #Monocytes 1.5 thou/uL (0.11-0.59); #Neutrophils 11.1 thou/uL (1.40-6.50); %Basophils 0.2 % (0.0-1.0); %Eosinophils 1.5 % (0.0-10.0); %Lymphocytes 9.3 % (21.0-51.0); %Monocytes 10.3 % (0.0-10.0); %Neutrophils 78.7 % (42.0-75.0); Hemoglobin 7.8 g/dL (12.0-16.0); Mean Corpuscular HGB CONC 32.5 g/dL (32.0-36.0); Mean Corpuscular Hemoglobin 29.9 pg (27.0-31.0); Mean Platelet Volume 6.9 fL (7.4-10.4); Platelet Count 943 thou/uL (130-400); RBC Distribution Width 12.8 % (11.5-14.5); Red Blood Cell (RBC) Count 2.62 mill/uL (4.20-5.40); White Blood Cell (WBC) Count 14.1 thou/uL (4.8-10.8)
[2020-06-20] MEDS: Famotidine 20 MG TAB PO SCH ×2 (19:18→20:56)
[2020-06-20] MEDS: Amoxicillin/Potassium Clav 875 MG TAB PO SCH (20:55)
[2020-06-21] MEDS: traMADol HCl 50 MG TAB PO PRN ×2 (03:51→09:42)
[2020-06-21 06:19] LABS: #Eosinphils 0.2 thou/uL (0.0-0.7); #Lymphocytes 1.2 thou/uL (1.20-3.40); #Monocytes 1.6 thou/uL (0.11-0.59); #Neutrophils 10.2 thou/uL (1.40-6.50); %Basophils 0.2 % (0.0-1.0); %Eosinophils 1.9 % (0.0-10.0); %Monocytes 11.8 % (0.0-10.0); %Neutrophils 77.2 % (42.0-75.0); Mean Corpuscular Hemoglobin 31.3 pg (27.0-31.0); Mean Corpuscular Volume 92.1 fL (78.0-98.0); Mean Platelet Volume 7.2 fL (7.4-10.4); Platelet Count 1003 thou/uL (130-400); RBC Distribution Width 12.8 % (11.5-14.5); Red Blood Cell (RBC) Count 2.22 mill/uL (4.20-5.40); White Blood Cell (WBC) Count 13.2 thou/uL (4.8-10.8)
[2020-06-21 07:28] VITALS: BP 127/80; TEMP 98.4
[2020-06-21] MEDS: Amoxicillin/Potassium Clav 875 MG TAB PO SCH (08:39)
[2020-06-21] MEDS: Famotidine 20 MG TAB PO SCH (08:44)
--- NOTE | 2020-06-21 09:08 | PRG ---
DATE OF SERVICE: 06/21/2020 SUBJECTIVE: Nieves Paiz is doing well today. She has tolerated her diet. Her BENNIE is putting out a very little bit and it will be removed. OBJECTIVE: VITAL SIGNS: Temperature 98.4 degrees, heart rate 88, and blood pressure 127/80. LUNGS: Clear to auscultation. CARDIAC: Regular rate and rhythm without murmur or gallop. ABDOMEN: Soft. BENNIE drain serous. LABORATORY DATA: This morning; her hemoglobin is 7, down from 7.8. ASSESSMENT AND PLAN: The patient is doing well. Expect her anemia to improve with a regular diet. She will take vitamins and iron [id number]. She will follow up with me in 2 to 3 weeks. [facility] has been arranged for her for wound VAC care and colostomy care. Job ID: [id number]
--- NOTE | 2020-06-23 00:24 | PQF ---
CLINICAL DOCUMENTATION CLARIFICATION FORM: Dear : Jacinto Garcia Date / Time: 06/23/2020 0024 Please exercise your independent, professional judgment in responding to the clarification form. Clinical indicators are provided on the bottom of this form for your review Based on the clinical indicators on admit, can you determine if Sepsis was present at the time of admission? Diagnosis: Sepsis Present on Admission (POA): [ ] Yes [ ] No [ ] Unable to determine Physician Signature: Date/Time: For continuity of documentation, please document condition throughout progress notes and discharge summary. Thank You. To be completed by CDI/Coding staff for physician review: Present Clinical Indicators - Signs / Symptoms / Labs Results and Location in Medical Record [X] WBC 12.4, Plt count 333, Neutrophils 77, Band 11, Laboratory 06/06 [X] BP 116/55, Pulse 90, Resp 18, Temp 98.7 Vital signs 06/06 [X] Severe colitis with contained perforation and pelvic abscess H&P p2 06/06 Dr Garcia [X] Peritonitis PN p1 06/07 Dr Garcia [X] Sigmoid Diverticulitis Operative report 06/07 Dr Garcia [X] Sepsis, she had feculent peritonitis PN p1 06/08 Dr Garcia [X] She is slightly confused PN 06/09 [X] Blood culture: no growth in 5 days Laboratory 06/06 Present Risk Factors Results and Location in Medical Record [X] Crohn disease H&P p1 06/06 Dr Garcia [X] Severe colitis with contained perforation and pelvic abscess H&P p1 06/06 Dr Garcia [X] Peritonitis PN p1 06/07 Dr Garcia [X] SLE H&P p1 06/06 Dr Garcia [X] Malnutrition PN 06/14 [X] Obesity Anesthesia 06/14 Present Treatments Results and Location in Medical Record [X] IV Zosyn 4.5 gm SEP 02 [X] IVF NS 1L SEP 02 [X] Colectomy with colostomy Operative report 06/07 Dr Garcia CDS/Field Auditor Signature: Livia Menawilton Phone #: [phone] Date/Time: 0024 This is a permanent part of the Medical Record [facility]
== END 2020-06-21 12:39 | disposition home health service (06) | DRG 329 ==
LOC: ERS 11:43 → SURG B 16:12 → ERHOLD 16:56 → SURG B 06-07 09:34 → 3SE 06-07 09:38 → SURG B 06-07 09:38 → CCU 06-07 14:12 → SURG B 06-09 15:35
PROVIDERS: ADMIT Specialist; ATTEND Specialist
PROC: 05H633Z Insertion of Infusion Device into Left Subclavian Vein, Percutaneous Approach (ICD-10-PCS; 2020-06-06)
PROC: 0D1L0Z4 Bypass Transverse Colon to Cutaneous, Open Approach (ICD-10-PCS; principal; 2020-06-07)
PROC: 0DTN0ZZ Resection of Sigmoid Colon, Open Approach (ICD-10-PCS; 2020-06-07)
PROC: 3E0M05Z Introduction of Adhesion Barrier into Peritoneal Cavity, Open Approach (ICD-10-PCS; 2020-06-07)
PROC: 0DBL0ZZ Excision of Transverse Colon, Open Approach (ICD-10-PCS; 2020-06-14)
PROC: 0JC80ZZ Extirpation of Matter from Abdomen Subcutaneous Tissue and Fascia, Open Approach (ICD-10-PCS; 2020-06-14)
PROC: 30233N1 Transfusion of Nonautologous Red Blood Cells into Peripheral Vein, Percutaneous Approach (ICD-10-PCS; 2020-06-19)
DX: K57.20 Diverticulitis of large intestine with perforation and abscess without bleeding (principal); K65.0 Generalized (acute) peritonitis; K55.049 Acute infarction of large intestine, extent unspecified; A41.9 Sepsis, unspecified organism; T81.31XA Disruption of external operation (surgical) wound, not elsewhere classified, initial encounter; K56.7 Ileus, unspecified; K94.03 Colostomy malfunction; K50.10 Crohn's disease of large intestine without complications; E46 Unspecified protein-calorie malnutrition; E87.0 Hyperosmolality and hypernatremia; Z20.828 Contact with and (suspected) exposure to other viral communicable diseases; D69.6 Thrombocytopenia, unspecified; M32.9 Systemic lupus erythematosus, unspecified; E86.0 Dehydration; E87.6 Hypokalemia; E66.9 Obesity, unspecified; D64.9 Anemia, unspecified; Y83.8 Other surgical procedures as the cause of abnormal reaction of the patient, or of later complication, without mention of misadventure at the time of the procedure; Y83.3 Surgical operation with formation of external stoma as the cause of abnormal reaction of the patient, or of later complication, without mention of misadventure at the time of the procedure; Z68.30 Body mass index [BMI] 30.0-30.9, adult; Z90.710 Acquired absence of both cervix and uterus
CPT/HCPCS: 36415; 36416; 36430; 71045; 74176; 74177; 80048; 80053; 81003; 83690; 83735; 84100; 85025; 85060; 85610; 85730; 86480; 86704; 86705; 86706; 86850; 86900; 86901; 87040; 87340; 88307; 93005; 96365; 96375; 96376; C9113; J1100; J1650; J1815; J1885; J2001; J2250; J2270; J2405; J2543; J2550; J2704; J2765; J3010; J3475; J3480; J3490; J7042; J7050; J7070; J7120; P9016; P9045; P9047; Q0162; Q9967; S0020; S0028; U0002

== ENCOUNTER 2020-09-07 15:10 | Outpatient (CLI) | payer OTHER ==
[2020-09-07 17:53] LABS: #Basophils 0.1 10x3/uL (0.0-0.2); #Eosinphils 0.1 10x3/uL (0.0-0.5); #Monocytes 0.6 10x3/uL (0.0-1.1); #Neutrophils 3.1 10x3/uL (1.5-8.4); %Basophils 0.9 % (0.0-2.0); %Eosinophils 1.3 % (0.0-6.0); %Lymphocytes 29.3 % (18.0-47.0); %Monocytes 10.2 % (0.0-10.0); %Neutrophils 58.1 % (40.0-75.0); Hemoglobin 12.4 g/dL (12.0-15.5); Mean Corpuscular HGB CONC 32.1 g/dL (32.0-36.0); Mean Corpuscular Hemoglobin 27.7 pg (27.0-33.0); Mean Corpuscular Volume 86.2 fl (81.6-98.3); Mean Platelet Volume 10.3 fl (7.4-10.4); Platelet Count 312 10x3/uL (150-450); RBC Distribution Width 15.3 % (11.5-14.5); Red Blood Cell (RBC) Count 4.48 10x6/uL (3.90-5.03); White Blood Cell (WBC) Count 5.4 10x3/uL (3.5-10.5)
[2020-09-07 18:45] LABS: ALT (SGPT) 11 U/L (8-55); AST (SGOT) 15 U/L (5-34); Albumin 4.3 g/dL (3.5-5.0); Alkaline Phosphatase 84 U/L (40-110); Anion Gap 13 mmol/L (10-20); BUN (Urea Nitrogen) 10 mg/dL (9.8-20.1); Bilirubin, Total 0.3 mg/dL (0.2-1.2); Calc. Creatinine Clearance 0 mL/min (70-130); Calcium 9.6 mg/dL (7.8-10.44); Carbon Dioxide 28 mmol/L (22-29); Chloride 102 mmol/L (98-107); Globulin 3.9 g/dL (2.4-3.5); Glucose 87 mg/dL (70-105); Potassium 3.9 mmol/L (3.5-5.1); Protein, Total 8.2 g/dL (6.0-8.3); Sodium 139 mmol/L (136-145)
[2020-09-07 20:39] LABS: Hemoglobin A1c 3.9 % (4.0-6.0)
[2020-09-08 00:37] LABS: SARS-CoV-2 PCR by NAA Not Detected (NotDetected)
== END 2020-09-07 15:11 | disposition home or self-care (01) ==
LOC: LABBT 15:10
PROVIDERS: ATTEND Specialist
DX: Z01.818 Encounter for other preprocedural examination (principal); K57.30 Diverticulosis of large intestine without perforation or abscess without bleeding; Z90.49 Acquired absence of other specified parts of digestive tract; Z93.3 Colostomy status; S31.109D Unspecified open wound of abdominal wall, unspecified quadrant without penetration into peritoneal cavity, subsequent encounter; K43.5 Parastomal hernia without obstruction or gangrene; Z20.822 Contact with and (suspected) exposure to COVID-19
CPT/HCPCS: 80053; 83036; 85025; 87635; 93005; 93010; U0003; U0005

== ENCOUNTER 2020-09-07 15:30 | Inpatient (IN) | payer OTHER ==
[2020-09-12] MEDS ORDERED: Fentanyl 100 MCG/2 ML VIAL ONE ×3 (08:05→15:14)
[2020-09-12] MEDS ORDERED: Midazolam HCl 2 mg/2 ml Vial ONE (08:21)
[2020-09-12] MEDS ORDERED: Acetaminophen 500 MG TAB ONE (08:46)
[2020-09-12] MEDS ORDERED: Gabapentin 300 MG CAP ONE (08:46)
[2020-09-12] MEDS ORDERED: Ketorolac Tromethamine 30 MG/ML VIAL ONE (08:46)
[2020-09-12] MEDS ORDERED: Scopolamine 1.5 mg/72 hour Patch ONE (08:46)
[2020-09-12] MEDS ORDERED: Meropenem 2 GM in Sodium Chloride 0.9% 100 ML IVPB SCH (09:00)
[2020-09-12] MEDS ORDERED: Meropenem 2 GM in Admixture Fee 1 EACH IVPB SCH (09:00)
[2020-09-12] MEDS ORDERED: Lidocaine 1% PF 5 ML VIAL ONE (10:29)
[2020-09-12] MEDS ORDERED: Bupivacaine HCl 0.5%/Epinephrine 1:200,000/PF 30 ml Vial ONE (10:29)
[2020-09-12] MEDS ORDERED: PHENYLEPHRINE-NS 100 MCG/ML 10 ML SYRINGE ONE (10:29)
[2020-09-12] MEDS ORDERED: Dexamethasone 20 MG/5 ML VIAL ONE (10:29)
[2020-09-12] MEDS ORDERED: Rocuronium Bromide 10 MG/ML (10ML VIAL) ONE (10:29)
[2020-09-12] MEDS ORDERED: PROPOFOL 200 MG/20 ML VIAL ONE (10:29)
[2020-09-12] MEDS ORDERED: Glycopyrrolate 0.2 MG/ML 5 ML SYRINGE ONE (10:29)
[2020-09-12] MEDS ORDERED: Ondansetron PF 4 MG/2 ML Vial ONE (10:29)
[2020-09-12] MEDS ORDERED: Phenylephrine 10 MG/ML VIAL ONE (12:21)
[2020-09-12] MEDS ORDERED: Ondansetron PF 4 MG/2 ML Vial IVP PRN ×2 (14:27→16:15)
[2020-09-12] MEDS ORDERED: hydrALAZINE 20 MG/ML VIAL SLOW IVP PRN (14:27)
[2020-09-12] MEDS ORDERED: Morphine 4 MG/ML VIAL SLOW IVP PRN ×2 (14:27)
[2020-09-12] MEDS ORDERED: diphenhydrAMINE 25 MG CAP PO PRN ×2 (14:33→16:15)
[2020-09-12] MEDS ORDERED: Promethazine HCl 25 MG/ML VIAL ONE (15:10)
[2020-09-12] MEDS ORDERED: Zolpidem Tartrate 5 MG TAB PO PRN (16:15)
[2020-09-12] MEDS ORDERED: Promethazine HCl 25 MG/ML VIAL IM PRN (16:15)
[2020-09-12] MEDS ORDERED: diphenhydrAMINE 50 MG/ML VIAL IM/IV PRN (16:15)
[2020-09-12] MEDS ORDERED: fentaNYL Citrate/PF 2,000 MCG in Sodium Chloride 0.9% 60 ML IV PRN (16:15)
[2020-09-12] MEDS ORDERED: Naloxone HCl 0.4 mg/ml Vial IV PRN (16:15)
[2020-09-12] MEDS: Lactated Ringer's 1,000 ML IV SCH (19:14)
[2020-09-12] MEDS: Gabapentin 300 MG CAP PO SCH ×2 (19:14→21:39)
[2020-09-12] MEDS: Acetaminophen 500 MG TAB PO SCH ×2 (19:14→23:24)
[2020-09-12] MEDS: Clindamycin/D5W 900 MG in Premix Bag 1 BAG IVPB SCH ×2 (19:18→23:26)
[2020-09-12] MEDS: Ketorolac Tromethamine 30 MG/ML VIAL IVP SCH ×2 (19:21→23:22)
[2020-09-12] MEDS: Famotidine/PF 20 mg/2ml Vial SLOW IVP SCH (21:39)
[2020-09-12 21:48] VITALS: BMI 30.3
[2020-09-12] MEDS: Famotidine 20 MG TAB PO SCH (23:25)
[2020-09-13] MEDS: Lactated Ringer's 1,000 ML IV SCH ×3 (01:21→19:17)
[2020-09-13 05:20] LABS: #Lymphocytes 0.6 thou/uL (1.20-3.40); #Monocytes 0.7 thou/uL (0.11-0.59); #Neutrophils 8.6 thou/uL (1.40-6.50); %Basophils 0.4 % (0.0-1.0); %Lymphocytes 6.1 % (21.0-51.0); %Monocytes 7.3 % (0.0-10.0); %Neutrophils 86.2 % (42.0-75.0); Hemoglobin 10.2 g/dL (12.0-16.0); Mean Corpuscular Volume 87.8 fL (78.0-98.0); Mean Platelet Volume 7.3 fL (7.4-10.4); Platelet Count 252 thou/uL (130-400); RBC Distribution Width 14.6 % (11.5-14.5); Red Blood Cell (RBC) Count 3.53 mill/uL (4.20-5.40); White Blood Cell (WBC) Count 9.9 thou/uL (4.8-10.8)
[2020-09-13 05:37] LABS: Anion Gap 11 mmol/L (10-20); BUN (Urea Nitrogen) 10 mg/dL (9.8-20.1); Calc. Creatinine Clearance 99 mL/min (70-130); Calcium 8.5 mg/dL (7.8-10.44); Carbon Dioxide 25 mmol/L (22-29); Chloride 108 mmol/L (98-107); Glucose 101 mg/dL (70-105); Potassium 4.6 mmol/L (3.5-5.1); Sodium 139 mmol/L (136-145)
[2020-09-13] MEDS: Clindamycin/D5W 900 MG in Premix Bag 1 BAG IVPB SCH (06:40)
[2020-09-13] MEDS: Acetaminophen 500 MG TAB PO SCH ×4 (06:41→23:09)
[2020-09-13] MEDS: Ketorolac Tromethamine 30 MG/ML VIAL IVP SCH ×4 (06:41→23:09)
[2020-09-13] MEDS: Famotidine/PF 20 mg/2ml Vial SLOW IVP SCH (10:08)
[2020-09-13] MEDS: Gabapentin 300 MG CAP PO SCH ×3 (10:11→19:36)
[2020-09-13] MEDS: Famotidine 20 MG TAB PO SCH ×2 (10:11→19:36)
[2020-09-13] MEDS ORDERED: Lactated Ringer's 1,000 ML IV SCH (17:42)
[2020-09-14] MEDS: Ketorolac Tromethamine 30 MG/ML VIAL IVP SCH ×3 (05:45→17:55)
[2020-09-14] MEDS: Acetaminophen 500 MG TAB PO SCH ×3 (05:45→17:56)
[2020-09-14] MEDS ORDERED: Fentanyl 100 MCG/2 ML VIAL ONE (06:50)
[2020-09-14] MEDS ORDERED: Midazolam HCl 2 mg/2 ml Vial ONE (06:50)
[2020-09-14] MEDS: Gabapentin 300 MG CAP PO SCH ×3 (08:24→19:48)
[2020-09-14] MEDS: Famotidine 20 MG TAB PO SCH ×2 (08:25→19:48)
[2020-09-14] MEDS ORDERED: Ondansetron ODT 8 MG TAB SL PRN (13:27)
[2020-09-14] MEDS ORDERED: Ondansetron ORAL SOLN. 4 MG/5 ML UDCUP PO PRN (13:27)
[2020-09-14] MEDS ORDERED: Ondansetron ODT 4 MG TAB PO PRN (13:27)
[2020-09-14] MEDS: traMADol HCl 50 MG TAB PO PRN (16:29)
[2020-09-15] MEDS: Acetaminophen 500 MG TAB PO SCH ×3 (00:12→12:27)
[2020-09-15] MEDS: Ketorolac Tromethamine 30 MG/ML VIAL IVP SCH ×3 (00:13→12:30)
[2020-09-15] MEDS: traMADol HCl 50 MG TAB PO PRN ×2 (00:13→06:39)
[2020-09-15] MEDS: Famotidine 20 MG TAB PO SCH (08:19)
[2020-09-15] MEDS: Gabapentin 300 MG CAP PO SCH (08:19)
[2020-09-15 12:27] VITALS: BP 136/83; TEMP 98.3
[2020-09-15] MEDS ORDERED: Ibuprofen 600 MG TAB PO PRN (23:59)
== END 2020-09-15 14:52 | disposition home or self-care (01) | DRG 331 ==
LOC: SURG A 09-12 07:53 → SJJU 09-12 17:57
PROVIDERS: ADMIT Specialist; ATTEND Specialist
PROC: 0DBN4ZZ Excision of Sigmoid Colon, Percutaneous Endoscopic Approach (ICD-10-PCS; principal; 2020-09-12)
PROC: 0DBP4ZZ Excision of Rectum, Percutaneous Endoscopic Approach (ICD-10-PCS; 2020-09-12)
PROC: 0WQF4ZZ Repair Abdominal Wall, Percutaneous Endoscopic Approach (ICD-10-PCS; 2020-09-12)
DX: Z43.3 Encounter for attention to colostomy (principal); K43.5 Parastomal hernia without obstruction or gangrene; Z90.49 Acquired absence of other specified parts of digestive tract; K66.0 Peritoneal adhesions (postprocedural) (postinfection); K57.30 Diverticulosis of large intestine without perforation or abscess without bleeding; X58.XXXD Exposure to other specified factors, subsequent encounter; S31.109D Unspecified open wound of abdominal wall, unspecified quadrant without penetration into peritoneal cavity, subsequent encounter
CPT/HCPCS: 36415; 80048; 85025; 88307; J1100; J1885; J2250; J2370; J2405; J2550; J2704; J3010; J3490; S0028

== ENCOUNTER 2020-09-17 23:50 | Emergency (ER) | payer OTHER | END 2020-09-18 00:45 | disposition home or self-care (01) | LOC: ERS 23:50 | DX: T81.31XA Disruption of external operation (surgical) wound, not elsewhere classified, initial encounter (principal); M35.9 Systemic involvement of connective tissue, unspecified; K50.90 Crohn's disease, unspecified, without complications | CPT/HCPCS: 12020 ==

== ENCOUNTER 2021-03-07 09:53 | Outpatient (CLI) | payer OTHER ==
[2021-03-07 11:04] LABS: #Basophils 0.1 10x3/uL (0.0-0.2); #Eosinphils 0.1 10x3/uL (0.0-0.5); #Monocytes 0.6 10x3/uL (0.0-1.1); #Neutrophils 3.6 10x3/uL (1.5-8.4); %Basophils 1.2 % (0.0-2.0); %Eosinophils 1.3 % (0.0-6.0); %Lymphocytes 29.2 % (18.0-47.0); %Monocytes 9.7 % (0.0-10.0); %Neutrophils 58.4 % (40.0-75.0); Mean Corpuscular HGB CONC 32.7 g/dL (32.0-36.0); Mean Corpuscular Hemoglobin 30.3 pg (27.0-33.0); Mean Corpuscular Volume 92.5 fl (81.6-98.3); Mean Platelet Volume 9.3 fl (7.4-10.4); Platelet Count 300 10x3/uL (150-450); RBC Distribution Width 13.6 % (11.5-14.5); Red Blood Cell (RBC) Count 4.29 10x6/uL (3.90-5.03); White Blood Cell (WBC) Count 6.1 10x3/uL (3.5-10.5)
[2021-03-07 11:24] LABS: Anion Gap 13 mmol/L (10-20); BUN (Urea Nitrogen) 10 mg/dL (9.8-20.1); Calc. Creatinine Clearance 0 mL/min (70-130); Carbon Dioxide 28 mmol/L (22-29); Chloride 104 mmol/L (98-107); Glucose 103 mg/dL (70-105); Potassium 4.3 mmol/L (3.5-5.1); Sodium 141 mmol/L (136-145)
[2021-03-07 21:53] LABS: SARS-CoV-2 PCR by NAA Not Detected (NotDetected)
== END 2021-03-07 09:54 | disposition home or self-care (01) ==
LOC: LABBT 09:53
PROVIDERS: ATTEND Specialist
DX: Z01.812 Encounter for preprocedural laboratory examination (principal); K43.2 Incisional hernia without obstruction or gangrene; Z20.822 Contact with and (suspected) exposure to COVID-19
CPT/HCPCS: 80048; 85025; U0003; U0005

== ENCOUNTER → 2021-03-10 | Day surgery (SDC) | payer OTHER ==
[2021-03-09 09:38] VITALS: BMI 29.2
[~2021-03-10] MED LIST changes: +Acetaminophen 500 MG TAB ONE; +Bupivacaine 0.25% HCL 30 ML VIAL ONE; +Bupivacaine HCl 0.5%/Epinephrine 1:200,000/PF 30 ml Vial ONE; +Dexamethasone 20 MG/5 ML VIAL ONE; +EPINEPHrine 1 MG/ML AMP ONE; +Fentanyl 100 MCG/2 ML VIAL ONE; +Glycopyrrolate 0.2 MG/ML 5 ML SYRINGE ONE; +HYDROcodone/Acetaminophen 5/325 mg Tablet ONE; -Iopamidol-370 76% 500 ML 1 ML ONE; +Ketorolac Tromethamine 30 MG/ML VIAL ONE; +Lidocaine 1% (PF) 30 ML VIAL ONE; +Lidocaine 1% PF 5 ML VIAL ONE; +Lidocaine 1% w/Epinephrine 1:100K 20 ML VIAL ONE; +Morphine 2 MG/ML VIAL ONE; +Ondansetron PF 4 MG/2 ML Vial ONE; +PHENYLEPHRINE-NS 100 MCG/ML 10 ML SYRINGE ONE; +PROPOFOL 200 MG/20 ML VIAL ONE; +Promethazine HCl 25 MG/ML VIAL ONE; +Rocuronium Bromide 10 MG/ML (10ML VIAL) ONE
== END | disposition home or self-care (01) ==
LOC: SDC 06:01
PROVIDERS: ATTEND Specialist
PROC: 0WUF4JZ Supplement Abdominal Wall with Synthetic Substitute, Percutaneous Endoscopic Approach (ICD-10-PCS; principal; 2021-03-10)
DX: K43.2 Incisional hernia without obstruction or gangrene (principal); K66.0 Peritoneal adhesions (postprocedural) (postinfection); Z88.5 Allergy status to narcotic agent; Z88.8 Allergy status to other drugs, medicaments and biological substances; Z91.013 Allergy to seafood
CPT/HCPCS: J0171; J0690; J1100; J1885; J2001; J2270; J2405; J2550; J2704; J3010; S0020

== ENCOUNTER 2021-12-11 07:08 | Outpatient (CLI) | payer BC | END 2021-12-11 07:09 | disposition home or self-care (01) | LOC: NM 07:08 | PROVIDERS: ATTEND Specialist | DX: R10.11 Right upper quadrant pain (principal) | CPT/HCPCS: 78227; A9537 ==

== ENCOUNTER 2022-01-12 05:49 | Inpatient (IN) | payer BC ==
[2022-01-10 14:08] VITALS: BMI 32.9
[2022-01-12] MEDS ORDERED: Sodium Chloride 0.9% 100 ML ONE (06:40)
[2022-01-12] MEDS ORDERED: CEFAZOLIN 2 GM VIAL ONE (06:40)
[2022-01-12] MEDS ORDERED: Acetaminophen 500 MG TAB ONE (06:40)
[2022-01-12] MEDS ORDERED: Ketorolac Tromethamine 30 MG/ML VIAL ONE ×2 (06:40→12:09)
[2022-01-12] MEDS ORDERED: Bupivacaine PF 0.5% 30 ML VIAL ONE (06:47)
[2022-01-12] MEDS ORDERED: Lidocaine 1% w/Epinephrine 1:100K 20 ML VIAL ONE (06:47)
[2022-01-12] MEDS ORDERED: fentaNYL Citrate/PF 100 MCG/2 ML SYRINGE ONE ×3 (06:51→10:36)
[2022-01-12] MEDS ORDERED: Rocuronium Bromide 10 MG/ML (10ML VIAL) ONE (07:57)
[2022-01-12] MEDS ORDERED: Lidocaine 1% PF 5 ML VIAL ONE (07:57)
[2022-01-12] MEDS ORDERED: Dexamethasone 20 MG/5 ML VIAL ONE (07:57)
[2022-01-12] MEDS ORDERED: PROPOFOL 200 MG/20 ML VIAL ONE (07:57)
[2022-01-12] MEDS ORDERED: ePHEDrine 50 MG/ML VIAL ONE (07:57)
[2022-01-12] MEDS ORDERED: Ondansetron PF 4 MG/2 ML Vial ONE (07:57)
[2022-01-12] MEDS ORDERED: Glycopyrrolate 0.2 MG/ML 5 ML SYRINGE ONE (07:57)
[2022-01-12] MEDS ORDERED: Phenylephrine 10 MG/ML VIAL ONE (07:57)
[2022-01-12] MEDS ORDERED: Ketamine 50 MG/ML (10ML VIAL) ONE (09:10)
[2022-01-12] MEDS ORDERED: HYDROmorphone 0.5 MG/0.5 ML SYRINGE ONE (09:35)
[2022-01-12] MEDS ORDERED: Zolpidem Tartrate 5 MG TAB PO PRN (10:35)
[2022-01-12] MEDS ORDERED: diphenhydrAMINE 25 MG CAP PO PRN (10:35)
[2022-01-12] MEDS ORDERED: Promethazine HCl 25 MG/ML VIAL IM PRN (10:35)
[2022-01-12] MEDS ORDERED: Ondansetron PF 4 MG/2 ML Vial IVP PRN ×2 (10:35→11:10)
[2022-01-12] MEDS ORDERED: fentaNYL Citrate/PF 2,000 MCG in Sodium Chloride 0.9% 60 ML IV PRN (10:35)
[2022-01-12] MEDS ORDERED: diphenhydrAMINE 50 MG/ML VIAL IVP PRN (10:35)
[2022-01-12] MEDS ORDERED: Naloxone HCl 0.4 mg/ml Vial IV PRN (10:35)
[2022-01-12] MEDS ORDERED: diphenhydrAMINE 50 MG/ML VIAL IM PRN (10:35)
[2022-01-12] MEDS ORDERED: Promethazine HCl 25 MG/ML VIAL ONE (10:38)
[2022-01-12] MEDS ORDERED: Communication Order-Pharmacy FS SCH (10:45)
[2022-01-12] MEDS ORDERED: diphenhydrAMINE 50 MG/ML VIAL ONE ×2 (11:04)
[2022-01-12] MEDS ORDERED: hydrALAZINE 20 MG/ML VIAL SLOW IVP PRN (11:10)
[2022-01-12] MEDS ORDERED: Ondansetron ODT 4 MG TAB PO PRN (11:10)
[2022-01-12] MEDS ORDERED: Midazolam HCl 2 mg/2 ml Vial ONE (11:28)
[2022-01-12] MEDS ORDERED: Lorazepam (BATCHED) 2 MG/ML SYR SLOW IVP PRN (12:07)
[2022-01-12] MEDS: Ketorolac Tromethamine 30 MG/ML VIAL IVP SCH ×3 (12:08→23:56)
[2022-01-12] MEDS ORDERED: Midazolam HCl 2 mg/2 ml Vial SLOW IVP SCH (12:15)
[2022-01-12] MEDS ORDERED: diphenhydrAMINE 50 MG/ML VIAL IVP SCH (12:15)
[2022-01-12] MEDS: D5 1/2 NS w/20 mEq KCL 1,000 ML IV SCH ×2 (14:31→21:30)
[2022-01-12] MEDS: Famotidine/PF 20 mg/2ml Vial SLOW IVP SCH (21:30)
[2022-01-12] MEDS: Enoxaparin Sodium 40 MG/0.4 ML SYRINGE SC SCH (21:30)
[2022-01-13] MEDS: D5 1/2 NS w/20 mEq KCL 1,000 ML IV SCH ×4 (05:27→20:35)
[2022-01-13] MEDS: Ketorolac Tromethamine 30 MG/ML VIAL IVP SCH ×4 (05:28→23:55)
[2022-01-13 06:36] LABS: #Lymphocytes 0.7 thou/uL (1.20-3.40); #Monocytes 1.1 thou/uL (0.11-0.59); #Neutrophils 13.1 thou/uL (1.40-6.50); %Basophils 0.1 % (0.0-1.0); %Eosinophils 0.1 % (0.0-10.0); %Lymphocytes 4.4 % (21.0-51.0); %Monocytes 7.4 % (0.0-10.0); %Neutrophils 88.1 % (42.0-75.0); Hemoglobin 12.1 g/dL (12.0-16.0); Mean Corpuscular HGB CONC 33.1 g/dL (32.0-36.0); Mean Corpuscular Hemoglobin 32.7 pg (27.0-31.0); Mean Corpuscular Volume 98.8 fL (78.0-98.0); Mean Platelet Volume 7.4 fL (7.4-10.4); Platelet Count 239 thou/uL (130-400); RBC Distribution Width 11.7 % (11.5-14.5); Red Blood Cell (RBC) Count 3.69 mill/uL (4.20-5.40); White Blood Cell (WBC) Count 14.9 thou/uL (4.8-10.8)
[2022-01-13 06:41] LABS: ALT (SGPT) 17 U/L (8-55); AST (SGOT) 16 U/L (5-34); Albumin 3.2 g/dL (3.5-5.0); Alkaline Phosphatase 73 U/L (40-110); Anion Gap 11 mmol/L (10-20); BUN (Urea Nitrogen) 9 mg/dL (9.8-20.1); Bilirubin, Total 0.4 mg/dL (0.2-1.2); Calc. Creatinine Clearance 104 mL/min (70-130); Calcium 8.5 mg/dL (7.8-10.44); Carbon Dioxide 25 mmol/L (22-29); Chloride 106 mmol/L (98-107); Estimated GFR 88; Globulin 3.2 g/dL (2.4-3.5); Glucose 135 mg/dL (70-105); Potassium 4.6 mmol/L (3.5-5.1); Protein, Total 6.4 g/dL (6.0-8.3); Sodium 137 mmol/L (136-145)
[2022-01-13] MEDS: Famotidine/PF 20 mg/2ml Vial SLOW IVP SCH ×2 (08:47→20:40)
[2022-01-13] MEDS ORDERED: Morphine 2 MG/ML VIAL SLOW IVP PRN (09:10)
[2022-01-13] MEDS ORDERED: HYDROcodone/Acetaminophen 7.5/325 mg Tablet PO PRN (09:10)
[2022-01-13] MEDS ORDERED: traMADol HCl 50 MG TAB PO PRN (12:04)
[2022-01-13] MEDS: Polyethylene Glycol 3350 17 GM Packet PO SCH (12:33)
[2022-01-13] MEDS: Enoxaparin Sodium 40 MG/0.4 ML SYRINGE SC SCH (20:40)
[2022-01-14] MEDS: D5 1/2 NS w/20 mEq KCL 1,000 ML IV SCH ×2 (03:12→17:32)
[2022-01-14 06:16] LABS: #Lymphocytes 1.3 thou/uL (1.20-3.40); #Monocytes 0.6 thou/uL (0.11-0.59); #Neutrophils 9.2 thou/uL (1.40-6.50); %Basophils 0.3 % (0.0-1.0); %Eosinophils 0.3 % (0.0-10.0); %Lymphocytes 11.6 % (21.0-51.0); %Monocytes 5.4 % (0.0-10.0); %Neutrophils 82.5 % (42.0-75.0); Hemoglobin 11.3 g/dL (12.0-16.0); Mean Corpuscular Hemoglobin 32.7 pg (27.0-31.0); Mean Corpuscular Volume 99.1 fL (78.0-98.0); Mean Platelet Volume 7.5 fL (7.4-10.4); Platelet Count 232 thou/uL (130-400); RBC Distribution Width 11.9 % (11.5-14.5); Red Blood Cell (RBC) Count 3.44 mill/uL (4.20-5.40); White Blood Cell (WBC) Count 11.2 thou/uL (4.8-10.8)
[2022-01-14] MEDS: Ketorolac Tromethamine 30 MG/ML VIAL IVP SCH ×4 (06:22→23:57)
[2022-01-14] MEDS: Polyethylene Glycol 3350 17 GM Packet PO SCH ×2 (09:08→20:14)
[2022-01-14] MEDS: Famotidine/PF 20 mg/2ml Vial SLOW IVP SCH ×2 (09:09→20:14)
[2022-01-14] MEDS ORDERED: Fleet Enema 133 ML BOT PR SCH (11:15)
[2022-01-14] MEDS: traMADol HCl 50 MG TAB PO PRN ×2 (12:33→20:13)
[2022-01-14] MEDS: Enoxaparin Sodium 40 MG/0.4 ML SYRINGE SC SCH (20:13)
[2022-01-15] MEDS: D5 1/2 NS w/20 mEq KCL 1,000 ML IV SCH (05:33)
[2022-01-15] MEDS: Ketorolac Tromethamine 30 MG/ML VIAL IVP SCH (05:33)
[2022-01-15 08:38] VITALS: BP 115/71; TEMP 98.8
[2022-01-15] MEDS: traMADol HCl 50 MG TAB PO PRN (09:05)
[2022-01-15] MEDS: Polyethylene Glycol 3350 17 GM Packet PO SCH (09:51)
[2022-01-15] MEDS ORDERED: Acetaminophen 500 MG TAB PO PRN (09:59)
[2022-01-15] MEDS ORDERED: Ibuprofen 600 MG TAB PO PRN (09:59)
== END 2022-01-15 10:15 | disposition home or self-care (01) | DRG 337 ==
LOC: SDC 05:49 → SJJU 11:15 → OBSVTOIN 11:15
PROVIDERS: ADMIT Specialist; ATTEND Specialist
PROC: 0WQF0ZZ Repair Abdominal Wall, Open Approach (ICD-10-PCS; principal; 2022-01-12)
PROC: 0DNW0ZZ Release Peritoneum, Open Approach (ICD-10-PCS; 2022-01-12)
PROC: 0DJW4ZZ Inspection of Peritoneum, Percutaneous Endoscopic Approach (ICD-10-PCS; 2022-01-12)
DX: K43.2 Incisional hernia without obstruction or gangrene (principal); Z20.822 Contact with and (suspected) exposure to COVID-19; E66.01 Morbid (severe) obesity due to excess calories; K59.00 Constipation, unspecified; K66.0 Peritoneal adhesions (postprocedural) (postinfection); Z68.32 Body mass index [BMI] 32.0-32.9, adult; Z53.31 Laparoscopic surgical procedure converted to open procedure; Z90.49 Acquired absence of other specified parts of digestive tract; Z91.011 Allergy to milk products; Z91.013 Allergy to seafood; Z91.018 Allergy to other foods
CPT/HCPCS: 36415; 80053; 85025; J0690; J1100; J1170; J1200; J1650; J1885; J2250; J2270; J2370; J2405; J2550; J2704; J2710; J3010; J3480; J3490; S0020; S0028

== ENCOUNTER 2022-05-07 14:58 | Outpatient (CLI) | payer BC ==
[2022-05-07 15:35] LABS: #Eosinphils 0.1 10x3/uL (0.0-0.5); #Monocytes 0.6 10x3/uL (0.0-1.1); #Neutrophils 3.6 10x3/uL (1.5-8.4); %Basophils 0.7 % (0.0-2.0); %Eosinophils 0.9 % (0.0-6.0); %Lymphocytes 24.8 % (18.0-47.0); %Monocytes 9.8 % (0.0-10.0); %Neutrophils 63.6 % (40.0-75.0); Hemoglobin 13.4 g/dL (12.0-15.5); Mean Corpuscular HGB CONC 34.5 g/dL (32.0-36.0); Mean Corpuscular Hemoglobin 31.4 pg (27.0-33.0); Mean Corpuscular Volume 90.9 fl (81.6-98.3); Platelet Count 338 10x3/uL (150-450); RBC Distribution Width 13.5 % (11.5-14.5); Red Blood Cell (RBC) Count 4.27 10x6/uL (3.90-5.03); White Blood Cell (WBC) Count 5.7 10x3/uL (3.5-10.5)
[2022-05-07 15:57] LABS: Anion Gap 13 mmol/L (10-20); BUN (Urea Nitrogen) 5 mg/dL (9.8-20.1); Calc. Creatinine Clearance 0 mL/min (70-130); Calcium 9.4 mg/dL (7.8-10.44); Carbon Dioxide 26 mmol/L (22-29); Chloride 107 mmol/L (98-107); Estimated GFR 87; Glucose 86 mg/dL (70-105); Potassium 4.2 mmol/L (3.5-5.1); Sodium 142 mmol/L (136-145)
== END 2022-05-07 14:59 | disposition home or self-care (01) ==
LOC: LABBT 14:58
PROVIDERS: ATTEND Specialist
DX: Z01.812 Encounter for preprocedural laboratory examination (principal); S31.109D Unspecified open wound of abdominal wall, unspecified quadrant without penetration into peritoneal cavity, subsequent encounter
CPT/HCPCS: 80048; 85025

== ENCOUNTER 2022-05-09 10:27 | Day surgery (SDC) | payer BC ==
[2022-05-08 11:39] VITALS: BMI 32.9
[2022-05-09] MEDS ORDERED: Ketorolac Tromethamine 30 MG/ML VIAL IVP SCH (10:45)
[2022-05-09] MEDS ORDERED: Acetaminophen 500 MG TAB ONE (10:47)
[2022-05-09] MEDS ORDERED: Ketorolac Tromethamine 30 MG/ML VIAL ONE (10:47)
[2022-05-09] MEDS ORDERED: Acetaminophen 500 MG TAB PO SCH (11:00)
[2022-05-09] MEDS ORDERED: Meropenem 2 GM in Sodium Chloride 0.9% 100 ML IVPB SCH (11:00)
[2022-05-09] MEDS ORDERED: Bupivacaine/Epinephrine 0.25% 30 ML VIAL ONE (12:34)
[2022-05-09] MEDS ORDERED: fentaNYL PF 100 MCG/2 ML SYRINGE ONE (12:39)
[2022-05-09] MEDS ORDERED: Ondansetron PF 4 MG/2 ML Vial ONE (12:48)
[2022-05-09] MEDS ORDERED: PHENYLEPHRINE-NS 100 MCG/ML 10 ML SYRINGE ONE (12:48)
[2022-05-09] MEDS ORDERED: PROPOFOL 200 MG/20 ML VIAL ONE (12:48)
== END 2022-05-09 15:00 | disposition home or self-care (01) ==
LOC: SDC 10:27
PROVIDERS: ATTEND Specialist
PROC: 0WJF0ZZ Inspection of Abdominal Wall, Open Approach (ICD-10-PCS; principal; 2022-05-09)
DX: S31.109A Unspecified open wound of abdominal wall, unspecified quadrant without penetration into peritoneal cavity, initial encounter (principal); Z88.5 Allergy status to narcotic agent; Z91.013 Allergy to seafood; Z91.018 Allergy to other foods; Z91.048 Other nonmedicinal substance allergy status; Z90.49 Acquired absence of other specified parts of digestive tract; Z98.890 Other specified postprocedural states
CPT/HCPCS: J1885; J2185; J2405; J2704; J3490

== ENCOUNTER 2023-12-09 14:27 | Outpatient (CLI) | payer BC ==
[2023-12-09 15:18] LABS: #Basophils 0.06 10x3/uL (0.0-0.2); #Eosinphils 0.05 10x3/uL (0.0-0.5); #Monocytes 0.54 10x3/uL (0.0-1.1); #Neutrophils 4.39 10x3/uL (1.5-8.4); %Basophils 0.9 % (0.0-2.0); %Eosinophils 0.8 % (0.0-6.0); %Lymphocytes 21.9 % (18.0-47.0); %Monocytes 8.3 % (0.0-10.0); %Neutrophils 67.9 % (40.0-75.0); Hemoglobin 14.2 g/dL (12.0-15.5); Mean Corpuscular HGB CONC 34.6 g/dL (32.0-36.0); Mean Corpuscular Volume 92.3 fL (81.6-98.3); Mean Platelet Volume 9.2 fL (7.4-10.4); Platelet Count 297 10x3/uL (150-450); RBC Distribution Width 12.5 % (11.5-14.5); Red Blood Cell (RBC) Count 4.44 10x6/uL (3.90-5.03); White Blood Cell (WBC) Count 6.5 10x3/uL (3.5-10.5)
[2023-12-09 15:42] LABS: Anion Gap 12 mmol/L (10-20); BUN (Urea Nitrogen) 8 mg/dL (9.8-20.1); Calc. Creatinine Clearance 0 mL/min (70-130); Calcium 9.8 mg/dL (7.8-10.44); Carbon Dioxide 27 mmol/L (22-29); Chloride 104 mmol/L (98-107); Estimated GFR 63; Glucose 110 mg/dL (70-105); Sodium 139 mmol/L (136-145)
== END 2023-12-09 14:28 | disposition home or self-care (01) ==
LOC: LABBT 14:27
PROVIDERS: ATTEND Surgery
DX: Z01.812 Encounter for preprocedural laboratory examination (principal); K82.8 Other specified diseases of gallbladder
CPT/HCPCS: 80048; 85025

== ENCOUNTER 2023-12-12 07:39 | Day surgery (SDC) | payer BC ==
[2023-12-09 15:10] VITALS: BMI 33.8
[2023-12-12] MEDS ORDERED: Bupivacaine 0.25% HCL 30 ML VIAL ONE (08:20)
[2023-12-12] MEDS ORDERED: EPINEPHrine 1 MG/ML VIAL ONE (08:20)
[2023-12-12] MEDS ORDERED: Indocyanine Green 25 MG/10 ML VIAL ONE (08:20)
[2023-12-12] MEDS ORDERED: CEFAZOLIN 2 GM VIAL ONE (08:21)
[2023-12-12] MEDS ORDERED: Sodium Chloride 0.9% 100 ML ONE (08:21)
[2023-12-12] MEDS ORDERED: PROPOFOL 20 ML ONE (08:49)
[2023-12-12] MEDS ORDERED: Rocuronium Bromide 10 MG/ML (10ML VIAL) ONE (08:50)
[2023-12-12] MEDS ORDERED: Lidocaine 1% PF 5 ML VIAL ONE (09:29)
[2023-12-12] MEDS ORDERED: fentaNYL PF 100 MCG/2 ML SYRINGE ONE ×2 (09:31→12:06)
[2023-12-12] MEDS ORDERED: Dexamethasone 4 mg/ml Vial ONE (10:02)
[2023-12-12] MEDS ORDERED: Ondansetron PF 4 MG/2 ML Vial ONE (11:20)
[2023-12-12] MEDS ORDERED: Glycopyrrolate 0.2 MG/ML 5 ML SYRINGE ONE ×2 (11:28→11:29)
[2023-12-12] MEDS ORDERED: NEOSTIGMINE 3 MG/3 ML SYRINGE ONE (11:28)
[2023-12-12] MEDS ORDERED: fentaNYL 50 mcg/mL 1 mL Vial ONE ×3 (11:32→13:25)
[2023-12-12] MEDS ORDERED: Promethazine HCl 25 MG/ML VIAL ONE (13:13)
[2023-12-12] MEDS ORDERED: Ketorolac Tromethamine 30 MG (1 mL) VIAL ONE (14:37)
== END 2023-12-12 17:30 | disposition home or self-care (01) ==
LOC: SDC 07:39
PROVIDERS: ATTEND Surgery
PROC: 0FT44ZZ Resection of Gallbladder, Percutaneous Endoscopic Approach (ICD-10-PCS; principal; 2023-12-12)
DX: K80.10 Calculus of gallbladder with chronic cholecystitis without obstruction (principal); K82.8 Other specified diseases of gallbladder; K43.2 Incisional hernia without obstruction or gangrene; Z79.899 Other long term (current) drug therapy; Z91.013 Allergy to seafood; Z91.048 Other nonmedicinal substance allergy status; Z91.018 Allergy to other foods; Z88.5 Allergy status to narcotic agent; Z88.8 Allergy status to other drugs, medicaments and biological substances; Z98.890 Other specified postprocedural states
CPT/HCPCS: 36416; 88304; 93005; 93010; C1889; J0171; J0665; J1100; J1885; J2405; J2550; J2704; J3010; J3490

== ENCOUNTER 2024-03-25 08:39 | Outpatient (CLI) | payer BC | END 2024-03-25 08:40 | disposition home or self-care (01) | LOC: CT 08:39 | PROVIDERS: ATTEND Surgery | DX: K43.2 Incisional hernia without obstruction or gangrene (principal); K63.89 Other specified diseases of intestine; N83.8 Other noninflammatory disorders of ovary, fallopian tube and broad ligament; Z98.890 Other specified postprocedural states | CPT/HCPCS: 74177 ==

== ENCOUNTER 2024-05-16 19:36 | Inpatient (IN) | payer BC ==
[2024-05-16] MEDS ORDERED: Dextrose 50% Abboject 50 ML SYRINGE SLOW IVP PRN (21:24)
[2024-05-16] MEDS ORDERED: Dextrose 5% in Water 1,000 ML IV PRN (21:24)
[2024-05-16] MEDS ORDERED: Glucagon 1 MG/ML KIT IM PRN (21:24)
[2024-05-16 21:27] VITALS: BMI 30.7
[2024-05-16] MEDS: Dextrose 5 %-0.45 % NaCl 1,000 ML IV SCH (21:50)
[2024-05-16] MEDS: Morphine 2 MG/ML VIAL SLOW IVP PRN (21:50)
[2024-05-16] MEDS: Ondansetron PF 4 MG/2 ML Vial IVP PRN (21:50)
[2024-05-17] MEDS: traMADol HCl 50 MG TAB PO PRN (00:54)
[2024-05-17] MEDS: Lactated Ringer's 1,000 ML IV SCH (00:54)
[2024-05-17] MEDS: Morphine 4 MG/ML VIAL SLOW IVP PRN (02:33)
[2024-05-17 05:17] LABS: #Basophils 0.03 10x3/uL (0.0-0.2); %Basophils 0.5 % (0.0-1.0); %Eosinophils 0.8 % (0.0-10.0); %Lymphocytes 14.5 % (21.0-51.0); %Monocytes 9.8 % (0.0-10.0); %Neutrophils 74.1 % (42.0-75.0); Hematocrit 40.5 % (36.0-47.0); Hemoglobin 13.9 g/dL (12.0-16.0); Mean Corpuscular HGB CONC 34.3 g/dL (32.0-36.0); Mean Corpuscular Hemoglobin 31.4 pg (27.0-31.0); Mean Corpuscular Volume 91.4 fL (78.0-98.0); Platelet Count 254 10x3/uL (130-400); RBC Distribution Width 12.5 % (11.5-14.5); Red Blood Cell (RBC) Count 4.43 mill/uL (4.20-5.40)
[2024-05-17 05:26] LABS: Anion Gap 12 mmol/L (10-20); BUN (Urea Nitrogen) 7 mg/dL (9.8-20.1); Calc. Creatinine Clearance 79 mL/min (70-130); Carbon Dioxide 23 mmol/L (22-29); Chloride 108 mmol/L (98-107); Estimated GFR 71; Glucose 101 mg/dL (70-105); Potassium 4.2 mmol/L (3.5-5.1); Sodium 139 mmol/L (136-145)
[2024-05-17] MEDS: Ketorolac Tromethamine 30 MG (1 mL) VIAL IVP PRN (10:30)
[2024-05-17] MEDS: Benzocaine/Menthol 1 LOZ LOZ PO PRN (10:32)
[2024-05-17] MEDS: Scopolamine 1 mg/72 hour Patch TD SCH (10:32)
[2024-05-17] MEDS: Ondansetron PF 4 MG/2 ML Vial IVP PRN (10:32)
[2024-05-17] MEDS ORDERED: Artificial Tear Ophth Sol 15 ML BOT EA EYE PRN (13:00)
[2024-05-17] MEDS: Benzocaine 20% Spray 60 ML CAN PO SCH (14:03)
[2024-05-17] MEDS: D5 1/2 NS w/10 mEq KCl 1,000 ML/1,000 ML BAG IV SCH (14:19)
[2024-05-18 05:49] LABS: #Basophils Less than 0.03 10x3/uL (0.0-0.2); %Basophils 0.3 % (0.0-1.0); %Eosinophils 0.9 % (0.0-10.0); %Lymphocytes 9.7 % (21.0-51.0); %Monocytes 8.7 % (0.0-10.0); %Neutrophils 80.1 % (42.0-75.0); Hematocrit 36.8 % (36.0-47.0); Hemoglobin 12.3 g/dL (12.0-16.0); Mean Corpuscular HGB CONC 33.4 g/dL (32.0-36.0); Mean Corpuscular Hemoglobin 31.3 pg (27.0-31.0); Mean Corpuscular Volume 93.6 fL (78.0-98.0); Mean Platelet Volume 9.9 fL (7.4-10.4); Platelet Count 241 10x3/uL (130-400); RBC Distribution Width 12.5 % (11.5-14.5); Red Blood Cell (RBC) Count 3.93 mill/uL (4.20-5.40)
[2024-05-18 06:03] LABS: Anion Gap 10 mmol/L (10-20); BUN (Urea Nitrogen) 7 mg/dL (9.8-20.1); Calc. Creatinine Clearance 79 mL/min (70-130); Calcium 8.6 mg/dL (7.8-10.44); Carbon Dioxide 25 mmol/L (22-29); Chloride 107 mmol/L (98-107); Estimated GFR 71; Glucose 108 mg/dL (70-105); Magnesium 1.9 mg/dL (1.6-2.6); Phosphorus 3.1 mg/dL (2.3-4.7); Potassium 3.6 mmol/L (3.5-5.1); Sodium 138 mmol/L (136-145)
[2024-05-18] MEDS ORDERED: MD-Gastroview 120 ML BOT ONE (08:40)
[2024-05-18 15:24] VITALS: BP 121/59; TEMP 98.1
== END 2024-05-18 15:54 | disposition home or self-care (01) | DRG 395 ==
LOC: SURG A 20:45
PROVIDERS: ADMIT Surgery; ATTEND Surgery
DX: K43.0 Incisional hernia with obstruction, without gangrene (principal); Z90.49 Acquired absence of other specified parts of digestive tract; Z90.710 Acquired absence of both cervix and uterus; Z98.890 Other specified postprocedural states; Z79.899 Other long term (current) drug therapy; Z91.048 Other nonmedicinal substance allergy status; Z91.013 Allergy to seafood; Z88.8 Allergy status to other drugs, medicaments and biological substances
CPT/HCPCS: 36415; 74018; 74250; 80048; 83735; 84100; 85025; 97139; J1885; J2272; J2405; J3480; J7042; J7120; Q9963

== ENCOUNTER 2024-05-26 06:56 | Inpatient (IN) | payer BC ==
[2024-05-25 09:43] VITALS: BMI 29.8
[2024-05-26] MEDS ORDERED: PROPOFOL 20 ML ONE (08:02)
[2024-05-26] MEDS ORDERED: Rocuronium Bromide 10 MG/ML (10ML VIAL) ONE ×2 (08:03→14:22)
[2024-05-26] MEDS ORDERED: Lidocaine 1% PF 5 ML VIAL ONE (08:03)
[2024-05-26] MEDS ORDERED: CEFAZOLIN 2 GM VIAL ONE (11:19)
[2024-05-26] MEDS ORDERED: fentaNYL PF 100 MCG/2 ML SYRINGE ONE ×2 (11:26→13:57)
[2024-05-26] MEDS ORDERED: Dexamethasone 4 mg/ml Vial ONE (11:40)
[2024-05-26] MEDS ORDERED: PHENYLEPHRINE-NS 100 MCG/ML 10 ML SYRINGE ONE (11:49)
[2024-05-26] MEDS ORDERED: Promethazine HCl 25 MG/ML VIAL IM PRN ×3 (12:08→15:27)
[2024-05-26] MEDS ORDERED: Naloxone HCl 0.4 mg/ml Vial IV PRN (12:08)
[2024-05-26] MEDS ORDERED: diphenhydrAMINE 25 MG CAP PO PRN (12:08)
[2024-05-26] MEDS ORDERED: Ondansetron HCl/PF 4 MG/2 ML Vial IVP PRN (12:08)
[2024-05-26] MEDS ORDERED: diphenhydrAMINE 50 MG/ML VIAL IM PRN (12:08)
[2024-05-26] MEDS ORDERED: diphenhydrAMINE 50 MG/ML VIAL IVP PRN (12:08)
[2024-05-26] MEDS ORDERED: Communication Order-Pharmacy FS SCH (12:15)
[2024-05-26] MEDS ORDERED: ePHEDrine Sulfate 50 MG/10 ML VIAL ONE (12:20)
[2024-05-26] MEDS ORDERED: MINERAL OIL/WHITE PETROLATUM 3.5 GM TUBE ONE (13:57)
[2024-05-26] MEDS ORDERED: Ondansetron PF 4 MG/2 ML Vial ONE (14:32)
[2024-05-26] MEDS ORDERED: Ketorolac Tromethamine 30 MG (1 mL) VIAL ONE (14:32)
[2024-05-26] MEDS ORDERED: SUGAMMADEX SODIUM 200 MG/2 ML VIAL ONE (14:32)
[2024-05-26] MEDS ORDERED: Glucagon 1 MG/ML KIT IM PRN (15:27)
[2024-05-26] MEDS ORDERED: Dextrose 5% in Water 1,000 ML IV PRN (15:27)
[2024-05-26] MEDS ORDERED: Ondansetron PF 4 MG/2 ML Vial IVP PRN (15:27)
[2024-05-26] MEDS ORDERED: hydrALAZINE 20 MG/ML VIAL SLOW IVP PRN (15:27)
[2024-05-26] MEDS ORDERED: Dextrose 50% Abboject 50 ML SYRINGE SLOW IVP PRN (15:27)
[2024-05-26] MEDS ORDERED: Ipratropium/Albuterol 3 ML NEB NEB PRN (15:27)
[2024-05-26] MEDS ORDERED: D5 1/2 NS w/20 mEq KCL 1,000 ML ONE (15:34)
[2024-05-26] MEDS ORDERED: Artificial Tear Ophth Sol 15 ML BOT EA EYE PRN (15:45)
[2024-05-26] MEDS: D5 1/2 NS w/20 mEq KCL 1,000 ML IV SCH (18:19)
[2024-05-26] MEDS: Famotidine 20 MG TAB PO SCH (19:56)
[2024-05-26] MEDS: Famotidine/PF 20 mg/2ml Vial SLOW IVP SCH (19:57)
[2024-05-27] MEDS: Polyethylene Glycol 3350 17 GM Packet PO SCH (08:57)
[2024-05-27] MEDS: D5 1/2 NS w/20 mEq KCL 1,000 ML IV SCH (09:02)
[2024-05-27] MEDS: FENTANYL 500 MCG/10 ML VIAL 2,000 MCG in Sodium Chloride 0.9% 60 ML IV PRN (11:39)
[2024-05-27] MEDS: Acetaminophen 500 MG TAB PO PRN (22:48)
[2024-05-28 05:20] LABS: Hematocrit 32.1 % (36.0-47.0); Hemoglobin 10.9 g/dL (12.0-16.0); Mean Corpuscular Hemoglobin 31.4 pg (27.0-31.0); Mean Corpuscular Volume 92.5 fL (78.0-98.0); Mean Platelet Volume 9.9 fL (7.4-10.4); Platelet Count 235 10x3/uL (130-400); RBC Distribution Width 12.5 % (11.5-14.5); Red Blood Cell (RBC) Count 3.47 mill/uL (4.20-5.40)
[2024-05-28 06:23] LABS: Band 6 % (5-11); Lymphocytes 8 % (21-51); Monocytes 5 % (0-10); Neutrophil 79 % (42-75); Platelet Adequacy Comment Platelets Normal; RBC Morphology Within Normal Limits; Reactive Lymphocytes 1 % (0-10)
[2024-05-28] MEDS ORDERED: Morphine 4 MG/ML VIAL SLOW IVP PRN ×2 (08:40→18:40)
[2024-05-28] MEDS ORDERED: Naloxone HCl 0.4 mg/ml Vial IVP PRN ×2 (08:40→18:39)
[2024-05-28] MEDS: Enoxaparin 40 MG (0.4 mL) SYRINGE SC SCH (09:10)
[2024-05-28] MEDS: oxyCODONE 5 MG TAB PO PRN (09:10)
[2024-05-28] MEDS: Ondansetron PF 4 MG/2 ML Vial IVP PRN ×2 (09:38→21:04)
[2024-05-28] MEDS: traMADol HCl 50 MG TAB PO SCH ×2 (11:29→21:04)
[2024-05-28] MEDS: Gabapentin 300 MG CAP PO SCH ×2 (15:11→21:03)
[2024-05-28 18:05] LABS: Anion Gap 10 mmol/L (10-20); BUN (Urea Nitrogen) 4 mg/dL (9.8-20.1); Calc. Creatinine Clearance 91 mL/min (70-130); Calcium 8.5 mg/dL (7.8-10.44); Carbon Dioxide 26 mmol/L (22-29); Chloride 104 mmol/L (98-107); Estimated GFR 86; Glucose 134 mg/dL (70-105); Potassium 4.4 mmol/L (3.5-5.1); Sodium 136 mmol/L (136-145)
[2024-05-28] MEDS ORDERED: diphenhydrAMINE 50 MG/ML VIAL IVP PRN (18:37)
[2024-05-28] MEDS ORDERED: diphenhydrAMINE 25 MG CAP PO PRN (18:37)
[2024-05-28] MEDS ORDERED: Ipratropium/Albuterol 3 ML NEB NEB PRN (18:38)
[2024-05-28] MEDS ORDERED: diphenhydrAMINE 50 MG/ML VIAL IM PRN (18:38)
[2024-05-28] MEDS ORDERED: Naloxone HCl 0.4 mg/ml Vial IV PRN (18:38)
[2024-05-28] MEDS ORDERED: Promethazine HCl 25 MG/ML VIAL IM PRN ×2 (18:38)
[2024-05-28] MEDS ORDERED: hydrALAZINE 20 MG/ML VIAL SLOW IVP PRN (18:38)
[2024-05-28] MEDS ORDERED: Artificial Tear Ophth Sol 15 ML BOT EA EYE PRN (18:38)
[2024-05-28] MEDS ORDERED: Dextrose 5% in Water 1,000 ML IV PRN (18:39)
[2024-05-28] MEDS ORDERED: Glucagon 1 MG/ML KIT IM PRN (18:39)
[2024-05-28] MEDS ORDERED: Dextrose 50% Abboject 50 ML SYRINGE SLOW IVP PRN (18:39)
[2024-05-28] MEDS: Famotidine 20 MG TAB PO SCH (21:03)
[2024-05-28] MEDS: Famotidine/PF 20 mg/2ml Vial SLOW IVP SCH (21:04)
[2024-05-29] MEDS: D5 1/2 NS w/20 mEq KCL 1,000 ML IV SCH ×2 (01:55→18:09)
[2024-05-29] MEDS: oxyCODONE 5 MG TAB PO PRN (03:20)
[2024-05-29] MEDS: Polyethylene Glycol 3350 17 GM Packet PO SCH (08:44)
[2024-05-29] MEDS: Enoxaparin 40 MG (0.4 mL) SYRINGE SC SCH (08:44)
[2024-05-30] MEDS: Ondansetron PF 4 MG/2 ML Vial IVP PRN (09:23)
[2024-05-30] MEDS: Sodium Chloride 0.9% 1,000 ML IV SCH (10:10)
[2024-05-30] MEDS ORDERED: Iopamidol-370 76% 500 ML MDV (1 ML CHARGE) ONE (10:53)
[2024-05-30] MEDS ORDERED: traMADol HCl 50 MG TAB PO PRN (11:28)
[2024-05-30] MEDS ORDERED: Acetaminophen 325 MG TAB PO PRN (11:28)
[2024-05-30] MEDS ORDERED: oxyCODONE 5 MG TAB PO PRN (11:28)
[2024-05-30] MEDS: D5 1/2 NS w/20 mEq KCL 1,000 ML IV SCH (11:30)
[2024-05-30 11:46] LABS: Anion Gap 12 mmol/L (10-20); BUN (Urea Nitrogen) 4 mg/dL (9.8-20.1); Calc. Creatinine Clearance 86 mL/min (70-130); Calcium 8.5 mg/dL (7.8-10.44); Carbon Dioxide 29 mmol/L (22-29); Chloride 100 mmol/L (98-107); Estimated GFR 81; Glucose 119 mg/dL (70-105); Potassium 3.6 mmol/L (3.5-5.1); Sodium 137 mmol/L (136-145)
[2024-05-30 12:40] LABS: #Basophils Less than 0.03 10x3/uL (0.0-0.2); %Basophils 0.2 % (0.0-1.0); %Eosinophils 1.2 % (0.0-10.0); %Lymphocytes 9.3 % (21.0-51.0); %Monocytes 9.2 % (0.0-10.0); %Neutrophils 79.7 % (42.0-75.0); Hematocrit 30.5 % (36.0-47.0); Hemoglobin 10.2 g/dL (12.0-16.0); Mean Corpuscular HGB CONC 33.4 g/dL (32.0-36.0); Mean Corpuscular Hemoglobin 30.8 pg (27.0-31.0); Mean Corpuscular Volume 92.1 fL (78.0-98.0); Mean Platelet Volume 9.4 fL (7.4-10.4); Platelet Count 271 10x3/uL (130-400); RBC Distribution Width 12.4 % (11.5-14.5); Red Blood Cell (RBC) Count 3.31 mill/uL (4.20-5.40)
[2024-05-30 15:18] LABS: Bilirubin Negative (Negative); Blood, Urine Trace (Negative); CAUTI Indications for Culture Dysuria,urgency,freq; Clarity Clear (Clear); Glucose, Urine (Dipstick) Normal (Negative); Ketone, Urine Negative (Negative); Leukocyte Negative Leu/uL (Negative); Nitrite Negative (Negative); Protein, Urine (Dipstick) Negative (Neg-Trace); RBC/HPF 0-3 HPF (0-3); Specific Gravity, Urine 1.009 (1.002-1.036); Squamous Epithelial 0-3 HPF (0-3); Urobilinogen Normal mg/dL (Less than 2); WBC/HPF 0-3 HPF (0-3); pH, Urine 6.5 (5.0-9.0)
[2024-05-30 15:38] LABS: Bacteria/HPF 1+ HPF (None Seen)
[2024-05-30 15:43] LABS: Yeast-Budding Rare HPF (None Seen)
[2024-05-30 15:45] LABS: Urine Culture Reflex No No
[2024-05-31] MEDS: D5 1/2 NS w/20 mEq KCL 1,000 ML IV SCH (21:14)
[2024-05-31] MEDS: Acetaminophen 500 MG TAB PO PRN (23:03)
[2024-06-01 05:35] LABS: #Basophils 0.03 10x3/uL (0.0-0.2); %Basophils 0.4 % (0.0-1.0); %Lymphocytes 12.6 % (21.0-51.0); %Monocytes 17.6 % (0.0-10.0); %Neutrophils 67.7 % (42.0-75.0); Hematocrit 30.3 % (36.0-47.0); Hemoglobin 10.5 g/dL (12.0-16.0); Mean Corpuscular HGB CONC 34.7 g/dL (32.0-36.0); Mean Corpuscular Hemoglobin 30.8 pg (27.0-31.0); Mean Corpuscular Volume 88.9 fL (78.0-98.0); Mean Platelet Volume 9.6 fL (7.4-10.4); Platelet Count 326 10x3/uL (130-400); RBC Distribution Width 12.7 % (11.5-14.5); Red Blood Cell (RBC) Count 3.41 mill/uL (4.20-5.40)
[2024-06-01] MEDS ORDERED: Morphine 4 MG/ML VIAL SLOW IVP PRN (07:34)
[2024-06-01] MEDS: Piperacillin/Tazobactam 3.375 GM in Sodium Chloride 0.9% 100 ML IVPB SCH ×2 (07:56→14:24)
[2024-06-01] MEDS ORDERED: Ondansetron PF 4 MG/2 ML Vial ONE (09:06)
[2024-06-01] MEDS ORDERED: Lidocaine 1% PF 5 ML VIAL ONE (09:06)
[2024-06-01] MEDS ORDERED: Rocuronium Bromide 10 MG/ML (10ML VIAL) ONE (09:06)
[2024-06-01] MEDS ORDERED: fentaNYL PF 100 MCG/2 ML SYRINGE ONE ×3 (09:06→11:55)
[2024-06-01] MEDS ORDERED: PROPOFOL 20 ML ONE (09:06)
[2024-06-01] MEDS ORDERED: SUCCINYLCHOLINE/SOD CL,ISO/PF 200 MG/10 ML SYRINGE FS ONE (09:06)
[2024-06-01] MEDS ORDERED: Dexamethasone 20 MG/5 ML VIAL ONE (09:06)
[2024-06-01] MEDS ORDERED: PHENYLEPHRINE-NS 100 MCG/ML 10 ML SYRINGE ONE (09:11)
[2024-06-01] MEDS ORDERED: Lidocaine 2% 6 ML (Jelly) SYR ONE (09:11)
[2024-06-01] MEDS ORDERED: SUGAMMADEX SODIUM 200 MG/2 ML VIAL ONE (11:12)
[2024-06-01] MEDS ORDERED: diphenhydrAMINE 50 MG/ML VIAL IM PRN (11:41)
[2024-06-01] MEDS ORDERED: Ondansetron HCl/PF 4 MG/2 ML Vial IVP PRN (11:41)
[2024-06-01] MEDS ORDERED: Ketorolac Tromethamine 30 MG/ML VIAL IVP PRN (11:41)
[2024-06-01] MEDS ORDERED: Promethazine HCl 25 MG/ML VIAL IM PRN (11:41)
[2024-06-01] MEDS ORDERED: Naloxone HCl 0.4 mg/ml Vial IV PRN (11:41)
[2024-06-01] MEDS ORDERED: Communication Order-Pharmacy FS SCH (11:45)
[2024-06-01] MEDS: D5 1/2 NS w/20 mEq KCL 1,000 ML IV SCH (14:25)
[2024-06-02 05:45] LABS: Hematocrit 29.2 % (36.0-47.0); Hemoglobin 10.3 g/dL (12.0-16.0); Mean Corpuscular HGB CONC 35.3 g/dL (32.0-36.0); Mean Corpuscular Hemoglobin 30.7 pg (27.0-31.0); Mean Corpuscular Volume 87.2 fL (78.0-98.0); Mean Platelet Volume 9.4 fL (7.4-10.4); Platelet Count 370 10x3/uL (130-400); RBC Distribution Width 12.8 % (11.5-14.5); Red Blood Cell (RBC) Count 3.35 mill/uL (4.20-5.40)
[2024-06-02] MEDS: Ondansetron PF 4 MG/2 ML Vial IVP PRN (05:55)
[2024-06-02 06:05] LABS: Anion Gap 12 mmol/L (10-20); BUN (Urea Nitrogen) 6 mg/dL (9.8-20.1); Calc. Creatinine Clearance 119 mL/min (70-130); Calcium 8.5 mg/dL (7.8-10.44); Carbon Dioxide 26 mmol/L (22-29); Chloride 108 mmol/L (98-107); Estimated GFR 104; Glucose 157 mg/dL (70-105); Potassium 3.5 mmol/L (3.5-5.1); Sodium 142 mmol/L (136-145)
[2024-06-02 06:39] LABS: Anisocytosis SLIGHT = 6-15 cells HPF (0-5); Band 35 % (5-11); Lymphocytes 4 % (21-51); Metamyelocyte 2 % (0-0); Microcytosis SLIGHT = 6-15 cells HPF (0-5); Monocytes 6 % (0-10); Neutrophil 53 % (42-75); Nucleated RBC (Manual Ct) 1 % (0); Platelet Adequacy Comment Platelets Normal; Polychromasia SLIGHT = 2-3 cells HPF (0-2); Target Cells MODERATE= 6-15 cells HPF (0-1)
[2024-06-02] MEDS: Promethazine HCl 25 MG/ML VIAL IM PRN (09:15)
[2024-06-02 15:23] VITALS: BMI 29.8
[2024-06-03] MEDS: FENTANYL 500 MCG/10 ML VIAL 2,000 MCG in Sodium Chloride 0.9% 60 ML IV PRN (00:44)
[2024-06-03 05:37] LABS: #Basophils Less than 0.03 10x3/uL (0.0-0.2); #Eosinophils Less than 0.03 10x3/uL (0.0-0.7); %Basophils 0.1 % (0.0-1.0); Hemoglobin 9.6 g/dL (12.0-16.0); Mean Platelet Volume 9.9 fL (7.4-10.4); Platelet Count 360 10x3/uL (130-400)
[2024-06-03 05:57] LABS: %Lymphocytes 8.9 % (21.0-51.0); %Monocytes 6.5 % (0.0-10.0); %Neutrophils 83.7 % (42.0-75.0); Hematocrit 28.1 % (36.0-47.0); Mean Corpuscular HGB CONC 34.2 g/dL (32.0-36.0); Mean Corpuscular Hemoglobin 30.4 pg (27.0-31.0); Mean Corpuscular Volume 88.9 fL (78.0-98.0); RBC Distribution Width 13.1 % (11.5-14.5); Red Blood Cell (RBC) Count 3.16 mill/uL (4.20-5.40)
[2024-06-03 06:29] LABS: Anion Gap 14 mmol/L (10-20); BUN (Urea Nitrogen) 9 mg/dL (9.8-20.1); Calc. Creatinine Clearance 111 mL/min (70-130); Calcium 8.6 mg/dL (7.8-10.44); Carbon Dioxide 25 mmol/L (22-29); Chloride 109 mmol/L (98-107); Estimated GFR 103; Glucose 119 mg/dL (70-105); Sodium 144 mmol/L (136-145)
[2024-06-03] MEDS ORDERED: Lidocaine 1% PF 5 ML VIAL ONE (09:30)
[2024-06-03] MEDS ORDERED: Sodium Bicarbonate 2.5 MEQ/5 ML SDV ONE (09:31)
[2024-06-04] MEDS: Pantoprazole 40 MG VIAL IVP SCH (09:34)
[2024-06-05 05:04] LABS: #Basophils Less than 0.03 10x3/uL (0.0-0.2); %Basophils 0.3 % (0.0-1.0); %Eosinophils 1.8 % (0.0-10.0); %Lymphocytes 14.9 % (21.0-51.0); %Monocytes 9.4 % (0.0-10.0); %Neutrophils 72.6 % (42.0-75.0); Hemoglobin 8.8 g/dL (12.0-16.0); Mean Corpuscular HGB CONC 35.2 g/dL (32.0-36.0); Mean Corpuscular Hemoglobin 31.1 pg (27.0-31.0); Mean Corpuscular Volume 88.3 fL (78.0-98.0); Mean Platelet Volume 9.3 fL (7.4-10.4); Platelet Count 423 10x3/uL (130-400); Red Blood Cell (RBC) Count 2.83 mill/uL (4.20-5.40)
[2024-06-05 05:23] LABS: Anion Gap 11 mmol/L (10-20); BUN (Urea Nitrogen) 5 mg/dL (9.8-20.1); Calc. Creatinine Clearance 115 mL/min (70-130); Carbon Dioxide 26 mmol/L (22-29); Chloride 106 mmol/L (98-107); Potassium 3.2 mmol/L (3.5-5.1); Sodium 140 mmol/L (136-145)
[2024-06-05 05:24] LABS: ALT (SGPT) 35 U/L (8-55); AST (SGOT) 21 U/L (5-34); Albumin 1.7 g/dL (3.5-5.0); Alkaline Phosphatase 150 U/L (40-110); Bilirubin, Total 0.8 mg/dL (0.2-1.2); Calcium 8.4 mg/dL (7.8-10.44); Cardiac Risk 9.3 (Less than 4.5); Cholesterol 121 mg/dl (< 200 Desired); Estimated GFR 103; Glucose 108 mg/dL (70-105); HDL Cholesterol 13 mg/dL (>60 Neg Risk); LDL Cholesterol, Calculated 84 mg/dL; Magnesium 2.1 mg/dL (1.6-2.6); Phosphorus 3.4 mg/dL (2.3-4.7); Protein, Total 5.7 g/dL (6.0-8.3); Triglycerides 122 mg/dL (Less than 150)
[2024-06-05 05:26] LABS: INR-International Normal Ratio 1.2; Prothrombin Time 15.6 sec (12.0-14.7)
[2024-06-05] MEDS ORDERED: [UNRECOGNIZED DRUG - OTHER] FS PRN (09:15)
[2024-06-05] MEDS: Thiamine HCl 200 MG/2 ML VIAL SLOW IVP SCH (12:02)
[2024-06-05] MEDS: Potassium Bicarbonate/Cit Ac 20 MEQ TAB PO SCH (12:05)
[2024-06-05] MEDS ORDERED: Multivitamins, Adult 10 ML, TRACE ELEMENT CONCENTRATE 1 ML in D15W-AA 5% w/o Lytes 2,00... IV SCH (14:00)
[2024-06-05] MEDS: Multivitamins, Adult 10 ML, TRACE ELEMENT CONCENTRATE 1 ML in D15W-AA 5% with Lytes 2,0... IV SCH (14:26)
[2024-06-05] MEDS ORDERED: fentaNYL 50 mcg/mL 1 mL Vial SLOW IVP PRN ×2 (14:27)
[2024-06-05] MEDS: diphenhydrAMINE 50 MG/ML VIAL IVP PRN (20:37)
[2024-06-05] MEDS: Ketorolac Tromethamine 30 MG (1 mL) VIAL IVP PRN (22:52)
[2024-06-06 06:41] LABS: Hematocrit 24.7 % (36.0-47.0); Hemoglobin 8.6 g/dL (12.0-16.0); Mean Corpuscular HGB CONC 34.8 g/dL (32.0-36.0); Mean Corpuscular Hemoglobin 31.4 pg (27.0-31.0); Mean Corpuscular Volume 90.1 fL (78.0-98.0); Mean Platelet Volume 9.8 fL (7.4-10.4); Platelet Count 447 10x3/uL (130-400); RBC Distribution Width 13.2 % (11.5-14.5); Red Blood Cell (RBC) Count 2.74 mill/uL (4.20-5.40)
[2024-06-06 07:15] LABS: Band 19 % (5-11); Eosinophils 6 % (0-10); Giant Platelets 0.9 % (0-5); Large Platelets 3.7 % (0-5); Lymphocytes 19 % (21-51); Metamyelocyte 1 % (0-0); Monocytes 14 % (0-10); Neutrophil 38 % (42-75); Platelet Adequacy Comment Platelets Increased; Polychromasia SLIGHT = 2-3 cells HPF (0-2); Reactive Lymphocytes 1 % (0-10)
[2024-06-06 07:43] LABS: ALT (SGPT) 23 U/L (8-55); AST (SGOT) 15 U/L (5-34); Albumin 1.8 g/dL (3.5-5.0); Alkaline Phosphatase 118 U/L (40-110); Anion Gap 12 mmol/L (10-20); BUN (Urea Nitrogen) 10 mg/dL (9.8-20.1); Bilirubin, Total 0.5 mg/dL (0.2-1.2); Calc. Creatinine Clearance 105 mL/min (70-130); Calcium 8.4 mg/dL (7.8-10.44); Carbon Dioxide 26 mmol/L (22-29); Cardiac Risk 5.2 (Less than 4.5); Chloride 104 mmol/L (98-107); Cholesterol 104 mg/dl (< 200 Desired); Estimated GFR 101; Globulin 3.9 g/dL (2.4-3.5); Glucose 113 mg/dL (70-105); HDL Cholesterol 20 mg/dL (>60 Neg Risk); LDL Cholesterol, Calculated 64 mg/dL; Magnesium 2.3 mg/dL (1.6-2.6); Phosphorus 3.2 mg/dL (2.3-4.7); Potassium 3.2 mmol/L (3.5-5.1); Protein, Total 5.7 g/dL (6.0-8.3); Sodium 139 mmol/L (136-145); Triglycerides 99 mg/dL (Less than 150)
[2024-06-06] MEDS ORDERED: Acetaminophen 325 MG TAB PO PRN (08:07)
[2024-06-06] MEDS: Potassium Chloride 20 MEQ in Premix 1 BAG IVPB SCH (10:29)
[2024-06-06] MEDS: D5 1/2 NS w/20 mEq KCL 1,000 ML IV SCH (10:29)
[2024-06-06] MEDS: Enoxaparin 40 MG (0.4 mL) SYRINGE SC SCH (10:30)
[2024-06-06] MEDS: Potassium Chloride 10 MEQ in Premix 1 BAG IVPB SCH (17:08)
[2024-06-06] MEDS ORDERED: traMADol HCl 50 MG TAB PO PRN (21:56)
[2024-06-06] MEDS: Ketorolac Tromethamine 30 MG (1 mL) VIAL IVP PRN (22:14)
[2024-06-07 06:22] LABS: ALT (SGPT) 20 U/L (8-55); AST (SGOT) 13 U/L (5-34); Albumin 1.8 g/dL (3.5-5.0); Alkaline Phosphatase 103 U/L (40-110); Anion Gap 13 mmol/L (10-20); BUN (Urea Nitrogen) 11 mg/dL (9.8-20.1); Bilirubin, Total 0.4 mg/dL (0.2-1.2); Calc. Creatinine Clearance 113 mL/min (70-130); Calcium 8.3 mg/dL (7.8-10.44); Carbon Dioxide 22 mmol/L (22-29); Cardiac Risk 4.6 (Less than 4.5); Chloride 106 mmol/L (98-107); Cholesterol 101 mg/dl (< 200 Desired); Estimated GFR 103; Globulin 3.9 g/dL (2.4-3.5); Glucose 106 mg/dL (70-105); HDL Cholesterol 22 mg/dL (>60 Neg Risk); LDL Cholesterol, Calculated 59 mg/dL; Magnesium 2.3 mg/dL (1.6-2.6); Phosphorus 3.1 mg/dL (2.3-4.7); Potassium 3.7 mmol/L (3.5-5.1); Protein, Total 5.7 g/dL (6.0-8.3); Sodium 137 mmol/L (136-145); Triglycerides 99 mg/dL (Less than 150)
[2024-06-07] MEDS: Famotidine 20 MG TAB PO SCH (21:11)
[2024-06-08 06:41] LABS: Hematocrit 28.8 % (36.0-47.0); Hemoglobin 9.9 g/dL (12.0-16.0); Mean Corpuscular HGB CONC 34.4 g/dL (32.0-36.0); Mean Corpuscular Hemoglobin 30.7 pg (27.0-31.0); Mean Corpuscular Volume 89.4 fL (78.0-98.0); Mean Platelet Volume 9.1 fL (7.4-10.4); Platelet Count 606 10x3/uL (130-400); RBC Distribution Width 13.5 % (11.5-14.5); Red Blood Cell (RBC) Count 3.22 mill/uL (4.20-5.40)
[2024-06-08 07:01] LABS: ALT (SGPT) 25 U/L (8-55); AST (SGOT) 26 U/L (5-34); Albumin 1.9 g/dL (3.5-5.0); Alkaline Phosphatase 116 U/L (40-110); Anion Gap 13 mmol/L (10-20); BUN (Urea Nitrogen) 9 mg/dL (9.8-20.1); Bilirubin, Total 0.5 mg/dL (0.2-1.2); Calc. Creatinine Clearance 95 mL/min (70-130); Calcium 8.4 mg/dL (7.8-10.44); Carbon Dioxide 23 mmol/L (22-29); Chloride 105 mmol/L (98-107); Estimated GFR 91; Globulin 4.4 g/dL (2.4-3.5); Glucose 90 mg/dL (70-105); Potassium 3.8 mmol/L (3.5-5.1); Protein, Total 6.3 g/dL (6.0-8.3); Sodium 137 mmol/L (136-145)
[2024-06-08 07:05] LABS: Band 14 % (5-11); Eosinophils 1 % (0-10); Large Platelets 6.8 % (0-5); Lymphocytes 13 % (21-51); Metamyelocyte 1 % (0-0); Monocytes 16 % (0-10); Neutrophil 52 % (42-75); Platelet Adequacy Comment Platelets Increased; Polychromasia SLIGHT = 2-3 cells HPF (0-2); RBC Morphology Within Normal Limits; Reactive Lymphocytes 3 % (0-10); Smudge Cells 4.9 %
[2024-06-08] MEDS: diphenhydrAMINE 25 MG CAP PO PRN (19:49)
[2024-06-09 06:35] LABS: ALT (SGPT) 25 U/L (8-55); AST (SGOT) 30 U/L (5-34); Albumin 1.8 g/dL (3.5-5.0); Alkaline Phosphatase 109 U/L (40-110); Anion Gap 12 mmol/L (10-20); BUN (Urea Nitrogen) 9 mg/dL (9.8-20.1); Bilirubin, Total 0.5 mg/dL (0.2-1.2); Calc. Creatinine Clearance 77 mL/min (70-130); Calcium 8.8 mg/dL (7.8-10.44); Carbon Dioxide 24 mmol/L (22-29); Chloride 103 mmol/L (98-107); Estimated GFR 71; Globulin 4.3 g/dL (2.4-3.5); Glucose 91 mg/dL (70-105); Potassium 3.7 mmol/L (3.5-5.1); Protein, Total 6.1 g/dL (6.0-8.3); Sodium 135 mmol/L (136-145)
[2024-06-09] MEDS: Melatonin 3 MG TAB PO PRN (20:57)
[2024-06-10 06:50] LABS: ALT (SGPT) 24 U/L (8-55); AST (SGOT) 19 U/L (5-34); Alkaline Phosphatase 106 U/L (40-110); Anion Gap 14 mmol/L (10-20); BUN (Urea Nitrogen) 9 mg/dL (9.8-20.1); Bilirubin, Total 0.5 mg/dL (0.2-1.2); Calc. Creatinine Clearance 79 mL/min (70-130); Calcium 8.6 mg/dL (7.8-10.44); Carbon Dioxide 23 mmol/L (22-29); Chloride 105 mmol/L (98-107); Estimated GFR 73; Globulin 4.5 g/dL (2.4-3.5); Glucose 94 mg/dL (70-105); Protein, Total 6.5 g/dL (6.0-8.3); Sodium 138 mmol/L (136-145)
[2024-06-11 05:42] LABS: ALT (SGPT) 19 U/L (8-55); AST (SGOT) 17 U/L (5-34); Alkaline Phosphatase 95 U/L (40-110); Anion Gap 14 mmol/L (10-20); BUN (Urea Nitrogen) 9 mg/dL (9.8-20.1); Bilirubin, Total 0.4 mg/dL (0.2-1.2); Calc. Creatinine Clearance 87 mL/min (70-130); Calcium 8.8 mg/dL (7.8-10.44); Carbon Dioxide 23 mmol/L (22-29); Chloride 105 mmol/L (98-107); Estimated GFR 82; Globulin 4.6 g/dL (2.4-3.5); Glucose 92 mg/dL (70-105); Potassium 3.8 mmol/L (3.5-5.1); Protein, Total 6.6 g/dL (6.0-8.3); Sodium 138 mmol/L (136-145)
[2024-06-11] MEDS: Piperacillin/Tazobactam 3.375 GM in Sodium Chloride 0.9% 100 ML IVPB SCH (20:03)
[2024-06-12 12:33] VITALS: BP 114/69; TEMP 98.2
== END 2024-06-12 14:54 | disposition home or self-care (01) | DRG 907 ==
LOC: SDC 06:56 → SURG A 15:19 → SDC 15:20 → SURG A 05-28 17:35 → SDC 05-28 17:35 → SURG A 06-03 13:53
PROVIDERS: ADMIT Surgery; ATTEND Surgery
PROC: 0DBL0ZZ Excision of Transverse Colon, Open Approach (ICD-10-PCS; principal; 2024-06-01)
PROC: 0DNL0ZZ Release Transverse Colon, Open Approach (ICD-10-PCS; 2024-06-01)
PROC: 0WPG0JZ Removal of Synthetic Substitute from Peritoneal Cavity, Open Approach (ICD-10-PCS; 2024-06-01)
PROC: 0D1L0Z4 Bypass Transverse Colon to Cutaneous, Open Approach (ICD-10-PCS; 2024-06-01)
DX: T85.79XS Infection and inflammatory reaction due to other internal prosthetic devices, implants and grafts, sequela (principal); K65.9 Peritonitis, unspecified; K43.9 Ventral hernia without obstruction or gangrene; E66.9 Obesity, unspecified; M54.9 Dorsalgia, unspecified; Z68.29 Body mass index [BMI] 29.0-29.9, adult; Z79.899 Other long term (current) drug therapy
CPT/HCPCS: 36415; 36573; 74177; 80048; 80053; 80061; 81001; 83735; 84100; 84134; 85025; 85610; 97139; A4314; A4649; C1751; C1776; C1781; J1100; J1200; J1650; J1885; J2405; J2470; J2543; J2550; J2704; J3010; J3411; J3480; J3490; J7030; Q9967